=== PATIENT | female | born 1985 | race Hispanic/Latino ===

== ENCOUNTER 2019-12-02 13:09 | Inpatient (IN) | payer OTHER, SELFPAY ==
[2019-12-02] VITALS (9 sets, daily range): BP systolic 113–133; BP diastolic 65–76; PULSE 85–97; TEMP 36.7–37.9; BMI 36.0
[2019-12-02 13:55] LABS: Basophils Absolute Auto 0.1 K/mm3 (0.0-0.1); Basophils Percent Auto 0.5 % (0.2-1.2); Eosinophils Percent Auto 0.2 % (0-4.4); Hematocrit 37.9 % (37.0-47.0); Hemoglobin 13.1 g/dL (12.0-15.0); Immature Granulocyte Absolute 0.16 K/mm3 (0.00-0.031); Immature Granulocyte Percent A 1.3 % (0-0.5); Lymphocytes Percent Auto 11.9 % (18.3-44.2); Mean Corpuscular HGB Conc 34.6 g/dl (32-36); Mean Corpuscular Volume 95.5 fl (80-100); Mean Platelet Volume 9.4 fl (7.4-10.4); Monocytes Absolute Auto 1.1 K/mm3 (0.1-0.6); Monocytes Percent Auto 8.8 % (2.6-8.5); Neutrophils Absolute Auto 9.8 K/mm3 (1.3-6.7); Neutrophils Percent Auto 77.3 % (45.5-73.1); Platelet Count Result 263 k/mm3 (150-375); Red Blood Count 3.97 M/mm3 (4.2-5.4); White Blood Count 12.6 K/mm3 (4.5-10.0)
--- NOTE | 2019-12-02 13:58 | LDADM ---
This patient, Pily Staley, was admitted to Labor/Delivery/Recovery 109 on 12/02/19 at 13:27. Plans for labor, pain management and were discussed with patient. Patient/family oriented to hospital policies and general routines including ID bracelet, bed and alarms, visiting hours, pain management, procedures, bathroom and other care routines, personal items, smoking policy, room service/diet and guest tray routines, infant security routines, and visiting hours. Patient/Family are encouraged to report perceived risks to care and to ask questions if they do not understand what they are told or what they should do. See OBIX for further documentation.
[2019-12-02] MEDS: DINOPROSTONE 10 MG VAG INSERT VAGINAL (14:15)
[2019-12-02] MEDS: AMPICILLIN 2 GM/NS 100 ML 2 GM/100 ML BAG IVPB (14:29)
[2019-12-02] MEDS: LACTATED RINGERS 1,000 ML 125 ML IV CONT (14:29)
[2019-12-02] MEDS: AMPICILLIN 1 GM/NS 50 ML 1 GM/50 ML BAG IVPB ×2 (18:12→22:30)
[2019-12-03] VITALS (198 sets, daily range): BP systolic 73–143; BP diastolic 31–89; PULSE 80–137; RESP 18; TEMP 36.8–37.4; O2SAT 84–100
[2019-12-03] MEDS: OXYTOCIN 30 UNITS/NS 500 ML 30 UNITS/500 ML BAG 6 UNITS IV CONT (02:29)
[2019-12-03] MEDS: AMPICILLIN 1 GM/NS 50 ML 1 GM/50 ML BAG IVPB ×4 (02:30→14:38)
[2019-12-03] MEDS: LACTATED RINGERS 1,000 ML 125 ML IV CONT ×4 (06:18→15:51)
--- NOTE | 2019-12-03 07:38 | WPDOBADMIT ---
Obstetrics - Admit Note Admission Note: record reviewed. No pertinent additions to the history and/or any subsequent changes in the physical findings that are not consistent with the expected course of the were found. Additions to the history and/or subsequent changes in the physical findings follow. at 40+3 admitted 12/01 for cervidil induction. She had SROM this morning with thin meconium and is 4 cm dilated. +GBS so continue antibiotics and continue pitocin..
--- NOTE | 2019-12-03 07:40 | WPDOBADMIT ---
Obstetrics - Admit Note Admission Note: record reviewed. No pertinent additions to the history and/or any subsequent changes in the physical findings that are not consistent with the expected course of the were found. MIL AROM, clear odorless fluid 1/-2 Additions to the history and/or subsequent changes in the physical findings follow. None.
[2019-12-03 16:06] LABS: Rapid Plasma Reagin Non-Reactive (NonReactive)
--- NOTE | 2019-12-03 17:31 | PM.OBPRVD ---
OB - Delivery Note Procedure Delivery date: 12/03/19 Procedure: Intrapartal events: None Induction method: AROM, per misoprostol protocol and per pitocin protocol Delivery monitor: external FHT and external uterine Episiotomy description: None Laceration description: Perineal - 2nd Degree Delivery repair: vicryl Specimen: No Anesthesia type: Epidural Disposition: floor Baby Date of : 12/03/19 Time of : 17:16 Weeks of gestation at delivery: 40 gender: Male Weight (pounds): 7 Weight (ounces): 1 presentation: vertex Placenta delivery description: Spontaneous cord vessel description: 3 Vessels score one minute: 8 score five minutes: 9
[2019-12-03] MEDS: OXYTOCIN 30 UNITS/NS 500 ML 30 UNITS/500 ML BAG 125 UNITS IV CONT (18:00)
[2019-12-03] MEDS: IBUPROFEN 600 MG TABLET PO (19:30)
[2019-12-03] MEDS: WITCH HAZEL 40 PADS 1 PAD TOPICAL (19:57)
--- NOTE | 2019-12-03 20:12 | OBPPTRN ---
Patient transferred to post room #285 via wheelchair and infant transported via crib. Support person present. Oriented to unit, room, information board, rooming in, admission packet and security measures. Patient verbalizes understanding.
--- NOTE | 2019-12-03 20:12 | OBPPTRN ---
Patient transferred to post room # via ( ). Support person present. Oriented to unit, room, information board, rooming in, admission packet and security measures. Patient verbalizes understanding.
[2019-12-04 05:28] LABS: Hematocrit 32.8 % (37.0-47.0); Hemoglobin 11.2 g/dL (12.0-15.0)
--- NOTE | 2019-12-04 07:43 | PM.OBPNVD ---
OB - PN: Subj Subjective Date/time seen: 12/04/19 07:43 Patient comments: no complaints baby status: doing well OB - PN: Obj Data Labs CBC & Chem 7: 12/04/19 04:32 Labs: Laboratory Results - last 24 hr 12/02/19 12/04/19 13:45 04:32 Hgb 11.2 L Hct 32.8 L RPR Non-reactive OB - PN A/P Plan day: 1 Plan: routine care Time Spent With Patient Time: Total time spent is greater than 50% in coordination of care (as documented) at patient's floor/unit and/or counseling patient: Review of Systems Review of Systems: All systems reviewed & are unremarkable except as noted in HPI and below Constitutional: Constitutional: Reports as per HPI Cardiovascular: Cardiovascular: Reports as per HPI Exam Const: General: comfortable Resp: Effort & Inspection: normal respiratory effort : Manual OB Exam: Deferred manual OB exam Psych: Appearance: grossly normal Mental Status: mental status grossly normal Affect: normal affect
--- NOTE | 2019-12-04 07:54 | WPDANLDPN2 ---
Anes-Prog Note L&D Date/Time: 12/04/19 07:54 Comfortable throughout: labor and delivery Neuraxial method: epidural Epidural/Spinal procedure site: clean & non-tender Neuro status: Neuro function grossly intact. Cardiovascular status: normal Respiratory status: normal Airway patency: baseline Mental status: baseline Post-Op hydration status: normal Vital Signs: Last Vital Signs Temp 37.2 C 12/03/19 20:15 Pulse 93 12/03/19 20:15 Resp 18 12/03/19 20:15 BP 122/72 12/03/19 20:15 Pulse Ox 98 12/03/19 20:15 I/O: Intake & Output 12/03/19 12/03/19 12/04/19 15:59 23:59 07:59 Intake Total 2100 500 Output Total 350 Balance 2100 150 Post-procedural complaints: none Patient feedback: Patient satisfied with anesthetic care.
[2019-12-04 08:00] VITALS: BP 125/72; PULSE 98; RESP 18; TEMP 36.3
[2019-12-04] MEDS: MULTIVIT/MIN/PREN/FOL AC/IRON TABLET 1 TAB PO (08:32)
[2019-12-04] MEDS: BENZOCAINE 20% AER SPR (*SP) 56 GM CAN 1 SPRAY (08:32)
[2019-12-04] MEDS: WITCH HAZEL 40 PADS 1 PAD TOPICAL (08:32)
[2019-12-04] MEDS: IBUPROFEN 600 MG TABLET PO ×2 (08:33→16:44)
[2019-12-04] MEDS: DOCUSATE SODIUM 100 MG CAPSULE PO ×2 (08:33→16:44)
--- NOTE | 2019-12-04 16:10 | PC.NURSE ---
Breast pump provided due to ineffective feeding and nipple shield use. . Instructions given on breast pump care and usage, pumping schedule, nipple care, and collection and storage of breast milk. Encouraged [id number], breast massage and manual expression to stimulate supply. Assessed patient for correct flange size, placement and draw. Patient verbalizes and demonstrates understanding of instructions.
[2019-12-04 19:49] VITALS: BP 128/71; PULSE 84; RESP 16; TEMP 36.6
[2019-12-04] MEDS: TETANUS,DIPHTHERIA,AC PERTUSSIS ADULT 0.5 ML (ADACEL) IM (19:52)
[2019-12-05] MEDS: IBUPROFEN 600 MG TABLET PO ×2 (05:27→11:43)
--- NOTE | 2019-12-05 07:55 | PM.OBPNVD ---
OB - PN: Subj Subjective Date/time seen: 12/05/19 07:55 Patient comments: no complaints baby status: doing well [place] feeding status: exclusively breast feeding OB - PN: Obj Data Labs CBC & Chem 7: 12/04/19 04:32 OB - PN A/P Plan day: 2 Plan: routine care, discharge home and other (Follow up in 4 weeks) Time Spent With Patient Time: Total time spent is greater than 50% in coordination of care (as documented) at patient's floor/unit and/or counseling patient: Time with patient: less than 15 minutes Review of Systems Review of Systems: All systems reviewed & are unremarkable except as noted in HPI and below Exam Narrative: Exam Narrative: Fundus firm and vaginal flow controlled Const: General: comfortable Resp: Effort & Inspection: normal respiratory effort Psych: Appearance: grossly normal Affect: normal affect Attitude: cooperative Judgement: Good judgement present (Psych)
[2019-12-05 08:00] VITALS: BP 121/75; PULSE 88; RESP 18; TEMP 36.2
[2019-12-05] MEDS: BENZOCAINE 20% AER SPR (*SP) 56 GM CAN 1 SPRAY TOPICAL (08:24)
[2019-12-05] MEDS: WITCH HAZEL 40 PADS 1 PAD TOPICAL (08:24)
[2019-12-05] MEDS: DIBUCAINE 1% OINTMENT 30 GM TUBE 1 APPLIC TOPICAL (08:25)
[2019-12-05] MEDS: MULTIVIT/MIN/PREN/FOL AC/IRON TABLET 1 TAB PO (08:25)
[2019-12-05] MEDS: LANOLIN (LANSINOH) 7.5 GM CREAM 1 APPLIC TOPICAL (08:25)
[2019-12-05] MEDS: DOCUSATE SODIUM 100 MG CAPSULE PO (08:25)
[2019-12-06 10:32] VITALS: BP 116/79; PULSE 95; RESP 18; TEMP 36.8
--- NOTE | 2019-12-28 21:01 | PM.OBDSVD ---
DS: Diagnosis Admitting Diagnosis Admitting Diagnosis: Encounter for supervision of normal , unspecified, third trimester Discharge Diagnosis (1) Term delivered: Code(s): O80 - Encounter for full-term uncomplicated delivery Status: Acute OB - DS: Summary OB Procedures : None OB Procedures Intrapartum: Spontaneous Vag Delivery OB Procedures: : None Peripartum Data Delivery Method: Natural Vaginal complications: none Status at Discharge Functional status at discharge: independent ambulation Time Spent with Patient Time attestation: Total time spent providing and/or coordinating discharge services: Discharge Plan Discharge Attending physician on discharge: Dameon Garcia Consulting providers: Theresa Plascencia ; Chelle Rocha Discharging Clinician: Chelle Rocha Patient Disposition: Home, Self-Care Activity: pelvic rest Diet: as tolerated Discharge Instructions: Education: Mom and Baby Guide Given to: Mother Follow-Up: Call your delivering provider's office for an appointment to be seen in: 6 Weeks Mom and baby should come to the [facility] for the follow-up appointment. Appointment Date/Time: December 06, 2019 at 10:00 am What to expect at your follow-up visit: Blood Pressure Check Physical Assessment Call [phone] if you are unable to keep your appointment time. BREAST CARE: 1. Wear a snug supportive bra. 2. For engorgement discomfort: Breast Feeding: A. Apply warm moist washcloths B. Express milk as needed to relieve engorgement C. Wear loose clothing Bottle Feeding: A. May apply ice packs 3. For sore nipples: A. Identify correct latch-on B. Apply warm moist washcloths before and after nursing C. Air dry nipples after nursing D. May apply Lansinoh cream to nipples EPISIOTOMY/PERINEAL CARE: 1. Until bleeding stops, use your jenna bottle after urinating 2. Change your pad frequently throughout the day 3. You may take sitz baths several times a day (fill your bathtub with warm water and soak for 20 minutes.) Do NOT bathe in the water 4. No tub baths until seen by your physician - You may shower ACTIVITY: 1. Rest as much as possible. 2. Do not exercise or lift anything heavier than your baby (such as laundry or other children.) 3. Avoid stairs or driving as much as possible. 4. Do not put anything into the vagina. No douching, tampons, or sexual activity until seen by physician. NOTIFY PHYSICIAN IF YOU HAVE ANY QUESTIONS OR IF ANY OF THE FOLLOWING SYMPTOMS OCCUR: 1. If your episiotomy becomes red, swollen, or more painful than what you have experienced in the hospital. 2. If your vaginal bleeding becomes foul smelling. 3. If your vaginal bleeding becomes more heavy than a period or if your bleeding changes from pink to bright red. However, you may pass an occasional walnut-sized clot once or twice for the first week . 4. If you experience a sharp, shooting pain in you calves. 5. If you discover a hard, reddened area on your breast or if you experience flu-like symptoms. DIET: 1. Eat regular, well-balanced meals. 2. Drink plenty of fluids daily. If , drink to thirst. Patient Instructions: Antibiotic Form Stand Alone Forms: General Discharge Information Follow-up/Referrals: Dameon Garcia MD [Physician] - 6 Weeks Discharge Medications: Continued PNV [id number] fumarate-FA [] 28 mg iron- 800 mcg Tablet 1 tablet PO DAILY RF: 0 Date of admission: 12/02/19 13:09 Primary Care Provider: SulyJulius Admitting Provider: Dameon Garcia Discharge Date/Time: 12/05/19 12:15 Attending physician on admission: Dameon Garcia
== END 2019-12-05 12:15 | disposition home or self-care (01) | DRG 560 ==
LOC: ANHLDR 12-03 10:37 → ANHOB2 12-03 20:15
PROVIDERS: Admitting Provider Obstetrics & Gynecology; PCP Registered Nurse; Visit Provider Obstetrics & Gynecology
DX: O99.824 Streptococcus B carrier state complicating childbirth (principal); Z37.0 Single live birth; Z3A.40 40 weeks gestation of pregnancy; Z23 Encounter for immunization; O70.1 Second degree perineal laceration during delivery; O69.81X0 Labor and delivery complicated by cord around neck, without compression, not applicable or unspecified
CPT/HCPCS: 36415; 85014; 85018; 85025; 86592; 86850; 86900; 86901; 90471; 90686; 90715; A9270; G0008; J0290; J2590; J2795; J3010; J7120

== ENCOUNTER 2020-05-11 01:30 | Outpatient (CLI) | payer OTHER, SELFPAY ==
[2020-05-11 16:17] LABS: SARS-CoV-2 RNA PCR Negative
== END 2020-05-11 01:31 | disposition home or self-care (01) ==
LOC: ANHCOVIDDT 01:30
PROVIDERS: PCP Registered Nurse; Visit Provider Obstetrics & Gynecology
DX: Z01.812 Encounter for preprocedural laboratory examination (principal); Z20.828 Contact with and (suspected) exposure to other viral communicable diseases
CPT/HCPCS: 87635; C9803; U0003

== ENCOUNTER 2020-05-13 00:35 | Day surgery (SDC) | payer OTHER, SELFPAY ==
[2020-05-06 09:13] VITALS: BMI 30.1
[2020-05-13] MEDS: LACTATED RINGERS 1,000 ML 30 ML IV CONT (09:51)
[2020-05-13 09:53] VITALS: BP 123/64; PULSE 78; TEMP 36.6; O2SAT 99
--- NOTE | 2020-05-13 10:06 | WPDANESEPPF ---
Anes - Initial Pre Proc Eval Procedure: Operation Date: 05/13/20 11:30 Proposed Procedures p Excision Of Vulvar Lesion - Dameon Garcia MD Date/Time: 05/13/20 10:06 Surgeon: Dameon Garcia MD Pre Op Diagnosis: Vulvar/Vaginal Lesion Patient Data Age: 35 Gender: F Height: 5 ft 3 in Weight: 74.4 kg Last Vital Signs Temp 97.8 F 05/13/20 09:53 Pulse 78 05/13/20 09:53 BP 123/64 05/13/20 09:53 Pulse Ox 99 05/13/20 09:53 Allergies Allergy/AdvReac Type Severity Reaction Status Date / Time No Known Allergies Allergy Verified 05/06/20 09:13 Home Medications Medication Instructions Recorded Confirmed Type No Home Medications 05/06/20 05/06/20 History Patient hx anesthesia problems: none Family hx anesthesia problems: none PMFSH Past Medical History Medical History (Updated 05/13/20 @ 10:06 by Ash Servin MD) Healthy adult Family History Family History (Updated 11/11/19 @ 12:53 by Kiah Hook RN) Mother Hypertension Kidney infection Father Hypertension Social History Social History Smoking status: Never smoker Second hand tobacco smoke exposure: No Alcohol intake: current Drinks per week: 1 Substance use: never Spiritual care concerns: No Anes - Eval Final PreProcedure Day of Procedure 05/13/20 10:06 Patient weight: normal Heart: regular rate and rhythm Lungs: clear to auscultation Airway: Mallampati scale class II Neurological: alert and oriented Last oral intake: >/= 8 hours ASA classification: I Emergent: no Anesthetic plan: proceed Anesthesia type and monitoring: general GIVS and standard monitoring Informed Consent: The patient's anesthetic plan and its attendant risks and benefits were discussed with the patient/family/POA. Questions were solicited and answers provided to the satisfaction of the patient/family/POA.
--- NOTE | 2020-05-13 11:16 | PM.IMHP ---
H&P: HPI History of Present Illness Date/Time: 05/13/20 11:16 Chief complaint: Vulvar/Vaginal Lesion Narrative: Pily Cummins is a 35 year old female Who presents for surgical care. She has a poorly healed episiotomy or obstetrical wound. Granulation tissue is filled the space there and has been bleeding and is refractory to treatment. We have agreed to perform resection of vulvar lesion. She understands the risks. She understands that injuries may occur that result and more surgery, severe illness, hospitalization . The patient understands the risk of hemorrhage and infection. Review of Systems Constitutional: Constitutional: Reports no additional constitutional complaints, Denies fatigue, Denies headache(s), Denies lethargy and Denies weakness Eyes: Eyes: Reports no additional eye complaints, Denies blurry vision and Denies photophobia ENT: Reports as per HPI, Denies headache(s) and Denies neck pain Cardiovascular: Cardiovascular: Denies chest pain, Denies diaphoresis, Denies leg edema, Denies palpitations and Denies dyspnea Respiratory: Respiratory: Denies hemoptysis, Denies dyspnea and Denies wheezing Gastrointestinal: Gastrointestinal: Denies abdominal pain, Denies melena, Denies bloating, Denies hematochezia, Denies nausea and Denies vomiting Genitourinary: Genitourinary: Reports no additional female genitourinary complaints Musculoskeletal: Musculoskeletal: Denies joint swelling, Denies neck pain, Denies numbness and Denies stiffness Neurologic: Denies Abnormal speech present, Denies confusion, Denies headache(s), Denies numbness and Denies weakness Psychiatric: Psychiatric: Denies anxiety, Denies confusion, Denies depression, Denies homicidal ideation and Denies suicidal ideation Endocrine: Endocrine: Denies fatigue and Denies palpitations Allergic/Immunologic: Allergic/Immunologic: Denies wheezing PMFSH Past Medical History Medical History (Updated 05/13/20 @ 11:18 by Dameon Garcia MD) Healthy adult Family History Family History (Updated 11/11/19 @ 12:53 by Kiah Hook RN) Mother Hypertension Kidney infection Father Hypertension Social History Social History Smoking status: Never smoker Second hand tobacco smoke exposure: No Alcohol intake: current Drinks per week: 1 Substance use: never Spiritual care concerns: No Meds Home Medications and Allergies Home Medications Medication Instructions Recorded Confirmed Type No Home Medications 05/06/20 05/06/20 History Allergies Allergy/AdvReac Type Severity Reaction Status Date / Time No Known Allergies Allergy Verified 05/06/20 09:13 Vital Signs Vital Signs - 24 hr 05/13/20 09:53 Temperature 97.8 F Pulse Rate 78 Blood Pressure 123/64 Pulse Oximetry 99 Exam Const: General: healthy appearing, comfortable and no acute distress; No confusion Orientation/consciousness: No confusion Eyes: Direct Ophthalmoscopy: No photophobia Resp: Auscultation: clear to auscultation bilaterally, no rales, no rhonchi and no wheezes Cardio: Rate: regular rate Heart sounds: no click, no murmurs and no rubs GI: Inspection: non-distended GI Palp: No abdominal tenderness Auscultation: normal bowel sounds Neuro: General: No confusion Speech: No Abnormal speech present Extrem: General: normal to inspection, no pedal edema and no calf tenderness Assessment and Plan Assessment and plan (1) Vulvar lesion: Code(s): N90.89 - Other specified noninflammatory disorders of vulva and perineum Status: Acute Assessment and Plan: this patient is a 35-year-old female presents for excision vulvar lesion. She understands the risks, benefits, and alternatives. She has completed the informed consent process and is ready to proceed.
[2020-05-13] MEDS: LIDO 1%/EPINEPHRINE 1:100,000 20 ML VIAL 5 ML INFILTRATE (11:33)
[2020-05-13 12:10] VITALS: BP 100/58; PULSE 86; RESP 18; O2SAT 99
--- NOTE | 2020-05-13 12:35 | P.OP_ITS ---
Procedure Note - Detailed Date of procedure: 05/13/20 Pre-op diagnosis: Vulvar/Vaginal Lesion Post-op diagnosis: same Procedure performed: Destruction of vaginal lesion Description of procedure: The patient was taken the operating room. She p referred draped in the dorsal lithotomy position. There was a area of granulation tissue. It was small. It is about 5 x 5 mm at the posterior vaginal introitus. Near the posterior fourchette. It was cauterized with Bovie cautery. Initially a piece of the granulation tissue was resected for pathology evaluation. Luciana scissors. Then the base of the granulation tissue lesion was cauterized thoroughly with coagulation cautery. The procedure was terminated. The wound was covered with estrogen cream. Anesthesia: MAC Surgeon: Dameon Garcia MD Estimated blood loss (mL): 5 Drains: No Packing: No Pathology: yes Complications: No immediate complications Condition: stable Disposition: same day Findings: 5 x 5 mm area of granulation tissue at the posterior fourchette. This is the area of her episiotomy is scar.
[2020-05-13 12:40] VITALS: BP 113/63; PULSE 58; RESP 16; O2SAT 99
[2020-05-13 13:05] VITALS: BP 113/63; PULSE 56; RESP 16
== END 2020-05-13 13:20 | disposition home or self-care (01) ==
PROVIDERS: PCP Registered Nurse; Visit Provider Obstetrics & Gynecology
PROC: (CPT 11420; principal; 2020-05-13 11:30)
DX: N90.89 Other specified noninflammatory disorders of vulva and perineum (principal)
CPT/HCPCS: 11420; 88305; A9270; J2250; J2704; J3010; J7120

== ENCOUNTER 2024-11-17 20:14 | Emergency (ER) | payer SELFPAY ==
--- NOTE | ~2024-11-17 | US_ITS ---
Pelvic ultrasound. Clinical History: First trimester , abdominal cramping and vaginal bleeding Technique: Realtime transabdominal and transvaginal scanning of the pelvis was performed. Color flow Doppler and Doppler spectral analysis were performed. Findings: The uterus is anteverted. The endometrial stripe has a thickness of 10 mm. No intrauterine gestational sac is identified. The right ovary measures 2.8 x 2.6 x 2.8 cm. No significant right ovarian or adnexal mass is seen. The left ovary measures 1.9 x 2.2 x 1.3 cm. No significant left ovarian or adnexal mass is seen. There is small amount of free fluid in the cul de sac. Impression: Positive test without intrauterine gestation. Differential diagnosis includes early normal , spontaneous , or nonvisualized ectopic . Correlate clinically. Continued follow-up with serial beta hCG, and repeat ultrasound as warranted, is advised. Reviewed, dictated and finalized at [facility]. Impression: Positive test without intrauterine gestation. Differential diagnosis includes early normal , spontaneous , or nonvisualized ectopic . Correlate clinically. Continued follow-up with serial beta hCG, and repeat ultrasound as warranted, is advised.
[2024-11-17 20:16] VITALS: BP 129/97; PULSE 81; RESP 16; TEMP 36.5; O2SAT 100
--- OUTSIDE RECORDS SUMMARY | 2024-11-17 20:17 | XMS_ITS | Continuity of Care Document ---
Author Organization [facility] Address [address] [place] [address] Phone Care Team Providers Care Aquatic Performer Name Role Phone Nurse, Registered Unavailable Unavailable Procedures Procedure Date ADMIN SARSCOV2 VACC 1 DOSE SARSCOV2 VAC 30MCG TRSSUC IM Advance Directives Directive Yes / No Effective Date File Name No Information Encounters Encounter Description Practice Location Reason(s) For Visit Diagnoses Date Provider Providers Copied on Encounter [facility] , [address], [place], [place], [id number], [place] tel:[phone] COVID Mobile immunization (chief complaint) No Information Nurse Registervaishali flannery [address], [place], [place], [address] , [place]. tel:[phone] Family History Family Member Type Diagnosis Age At Onset No Information Immunizations Vaccine Date Status Comments 12+ Pfizer administered Note: Pt tolera terry well ; Source: New Immunization Record Payers Payer name Insurance type Covered republican ID Authoriza tion(s) No Information Social History Type Description Quantity Date Captured Comments Alcohol Use Details Unknown Caffeine Use Details Unknown Tobacco Use Status No Information Smoking Status No Information Sex Female Chief Complaint And Reason For Visit From encounter dated '07/21/2023 17:52'. immunization (chief complaint). Description: 1 12+ Pfizer [id number] Administered New 07/21/2023 07/21/2023 05:54 PM Norise [employer], Iris 0.3 [id number] 10/11/2023 [employer] Intramuscular Left Deltoid Pt tolerated well Yuki Anthony Narnell (07/21/2023) Reason For Referral Reason For Referral No Information History Of Present Illness Encounter Date Complaint History Of Prese nt Illness immunization 1 12+ Pfizer [id number] Administered New 07/21/2023 07/21/2023 05:54 PM Norise [employer], Iris 0.3 [id number] 10/11/2023 [employer] Intramuscular Left Deltoid Pt tolerated well Yuki Anthony Narnell (07/21/2023) Functional Status Date Functional Assessmen t No Information Instructions Date Instruction Additional Infor mation No Information Assessments Type Assessment Date No Information Patient Care Teams Name Effective Dates (start - stop) Status Members No Information
--- OUTSIDE RECORDS SUMMARY | 2024-11-17 20:17 | XMS_ITS | Data Portability ---
Author Organization Marta JACKSON Address [address] [place] [address] Care Team Providers Care Senior Oracle Soa Developer Name Role Phone JULIUS LANE Primary Care Provider [phone] LAKHWINDER ACOSTA Mold Inspector Assessment No assessment recorded. 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 Not available Not available Lab TSH, ultra- sensit sebastian, serum 2023 024 [facility], [address] [place] [address], [address], [place], [address], 05/10/2024 08:25:23 vitami n D, 25-hyd sabiha, total, serum 2023 024 [facility], [address] [place], [place] [address]radha [address], [address], [place], [address], 05/10/2024 08:25:23 urinal ysis, dipsti ck 2023 024 [email or web address] In-Office Order, Internal Use Only DO Not Attach Compendium DO Not Attach Compendium, Do Not Delete/merge, [id number] 02/06/2024 17:43:01 cultur e, urine 2023 024 [facility], [address] [place], [place] [address]radha [address], [address], [place], [address], 02/08/2024 02:08:45 respir atory allerg en panel - [place] c 2023 024 [facility], [address], [address], [place], [address], 12/30/2023 23:06:55 HbA1c (hemog lobin A1c), blood 2023 024 [email or web address] In-Office Order, Internal Use Only DO Not Attach Compendium DO Not Attach Compendium, Do Not Delete/merge, [id number] 12/25/2023 15:23:38 glucos e, finger stick, blood 2023 024 [email or web address] In-Office Order, Internal Use Only DO Not Attach Compendium DO Not Attach Compendium, Do Not Delete/merge, [id number] 12/25/2023 15:23:39 CBC w/ auto diff 2023 024 [facility], [address], [address], [place], [address], 12/25/2023 22:07:06 vitami n B12 + folate , serum or blood 2023 024 [facility], [address], [address], [place], [address], 12/30/2023 23:06:56 vitami n D, 25-hyd sabiha, total, serum 2023 024 [facility], [address], [address], [place], [address], 12/30/2023 23:06:56 TSH + free T4, serum 2023 024 [facility], [address], [address], [place], [address], 12/30/2023 23:06:55 CMP, serum or plasma 2023 024 [facility], [address] [place] [address], [address], [place], [address], 12/25/2023 22:07:03 urinal ysis, comple te 2023 024 [facility], [address] [place] [address], [address], [place], [address], 12/25/2023 22:07:05 strept ococcu s group A, cultur e, throat 2023 024 [facility], [address] [place] [address], [address], [place], [address], 12/28/2023 05:08:18 urinal ysis, dipsti ck 2022 023 [email or web address] In-Office Order, Internal Use Only DO Not Attach Compendium DO Not Attach Compendium, Do Not Delete/merge, [id number] 11/14/2022 12:39:23 cultur e, urine 2022 023 [facility], [address] [place] [address], [address], [place], [address], 11/18/2022 17:09:26 Referral None record ed. Procedures None record ed. Surgeries None record ed. Imaging None record ed. Medication Orders Unithr oid 25 mcg tablet 2023 024 petr [facility], [address] [place], [address], 11/08/2024 16:41:58 Unithr oid 25 mcg tablet 2023 024 [facility], [address] [place], [address], 05/09/2024 16:25:33 Bactri m DS 800 mg-160 mg tablet 2023 024 [facility], [address] [place] [address], [address], 05/09/2024 15:40:26 Unithr oid 25 mcg tablet 2023 024 [facility], [address] [place] [address], [address], 02/06/2024 17:43:08 cetiri zine 10 mg tablet 2023 024 [facility], [address] [place] [address], [address], 02/06/2024 17:43:07 amoxic illin 875 mg tablet [address] [facility], [address] [place] [address], [address], 02/06/2024 16:58:26 cetiri zine 10 mg tablet [address] [facility], [address] [place] [address], [address], 02/06/2024 17:06:31 Medrol 4 mg tablet 2023 024 [facility], [address] [place] [address], [address], 02/06/2024 16:59:17 Macrob id 100 mg capsul e 2022 023 [facility], [address] [place] [address], [address], 02/06/2024 16:58:33 Pyridi um 200 mg tablet 2022 023 [facility], [address] [place] [address], [address], 12/25/2023 14:47:57 Patient TargetsNo targets recorded. Patient Instructions Encounter Date Encounter Id Patient Instructions Last Modified By Organization Details Last Modified Time 11/14/2022 [id number] aprenda acerca d el peso saludable - [learning about healthy weight] yarauz Not available 11/14/2022 12:39:22 increase water intake general hygiene measures take all your medicines as directed if symptoms do not improve or resolve make a follow up appointment yarauz Not available 11/14/2022 12:39:21 12/25/2023 [id number] Aprenda sobre el nivel bajo de az car en la beatriz (hipoglucemia) en la diabetes - [Learning About Low Blood Sugar (Hypoglycemia) in Diabetes] yarauz Not available 12/25/2023 15:31:34 hipoglucemia: instrucciones de cuidado - [hypoglycemia: care instructions] yarauz Not available 12/25/2023 15:31:34 dolor de gargant a: instrucciones de cuidado - [sore throat: care instructions] yarauz Not available 12/25/2023 15:31:34 aprenda acerca d el peso saludable - [learning about healthy weight] yarauz Not available 12/25/2023 15:23:36 A healthy lifestyle: care instructions yarauz Not available 12/25/2023 15:23:36 see dentist ever y 6 months see eye doctor every 2 years or as necessary Influenza vaccine yearly condoms seat belt use sun screen insect repellent heart healthy diet 1 hour of physical activity no more than 2 hours of electronics yarauz Not available 12/25/2023 15:23:21 02/06/2024 [id number] Infecci n urinaria en las mujeres: Instrucciones de cuidado - [Urinary Tract Infection (UTI) in Women: Care Instructions] yarauz Not available 02/06/2024 17:42:59 hipotiroidismo: instrucciones de cuidado - [hypothyroidism: care instructions] yarauz Not available 02/06/2024 17:42:59 test results estephania l check tsh on f/u and vitamin d general hygiene measures yarauz Not available 02/06/2024 17:42:23 05/09/2024 [id number] A healthy lifestyle: care instructions yarauz Not available 05/09/2024 16:21:48 aprenda acerca d el peso saludable - [learning about healthy weight] yarauz Not available 05/09/2024 16:21:48 continue vitamin D continue thyroid med if test results abnormal will call yarauz Not available 05/09/2024 16:24:30 08/12/2024 [id number] A healthy lifestyle: care instructions yarauz Not available 08/12/2024 15:56:08 aprenda acerca d el peso saludable - [learning about healthy weight] yarauz Not available 08/12/2024 15:56:08 You have hypothyroidism, which means that your body is not making enough thyroid hormone. This hormone helps your body use energy. If your thyroid level is low, you may feel tired, be constipated, have an increase in your blood pressure, or have dry skin or memory problems. You may also get cold easily, even when it is warm. Women with low thyroid levels may have heavy menstrual periods. A blood test to find your thyroid-stimulatin g hormone (TSH) level is used to check for hypothyroidism. A high TSH level may mean that you have low thyroid. When your body is not making enough thyroid hormone, TSH levels rise in an effort to make the body produce more. The treatment for hypothyroidism is to take thyroid hormone pills. You should start to feel better in 1 to 2 weeks. But it can take several months to see changes in the TSH level. You will need regular visits with your doctor to make sure you have the right dose of medicine. Most people need treatment for the rest of their lives. You will need to see your doctor regularly to have blood tests and to make sure you are doing well. Follow-up care is a olivas part of your treatment and safety. Be sure to make and go to all appointments, and call your doctor if you are having problems. It's also a good idea to know your test results and keep a list of the medicines you take. [email or web address] Not available 08/12/2024 15:51:36 Reason for Referral None Reported. Results Created Date Observation Date Name Description Value Unit Range Abnormal Flag Note LastModifiedBy Organization Detail LastModifiedTime 11/15/1911/18/2022 URINE CULTU RE, ROUTI NE urine culture, routine Final report abnormal Not Available [facility] ([facility]) [address] [facility] [place], [place], [address], 11/18/2022 17:09:26 11/15/19 23 11/18/2022 URINE CULTU RE, ROUTI NE result 1 Commen t abnormal Esche flavio a coli, ident ified by an autom ated bioch emica l syste m. Cefaz [place] <=4 ug/mL Cefaz [place] with an LOUIE <=16 predi cts susce ptibi lity to the oral agent s cefac jackelin, cefdi dolores, cefpo doxim e, cefpr ozil, cefur oxime , cepha lexin , and lorac arbef when used for thera py of uncom plica terry urina ry tract infec tions due to E. coli, Klebs iella pneum oniae , and Prote us mirab ilis. Multi -Drug Resis tant Organ ism Great er than 100,0 00 colon y formi ng units per mL Not Available [facility] ([facility]) [address] [place], [place], [address], 11/18/2022 17:09:26 11/15/19 23 11/18/2022 URINE CULTU RE, ROUTI NE antimicrobia l susceptibili ty Commen t S = Susce ptibl e; I = Inter media te; R = Resis tant P = Posit sebastian; N = Negat sebastian MICS are expre ssed in micro grams per mL Antib iotic RSLT# 1 RSLT# 2 RSLT# 3 RSLT# 4 Amoxi cilli n/Cla vulan ic Acid S Ampic illin R Cefep manuelito S Ceftr iaxon e S Cefur oxime S Cipro floxa farzad S Ertap enem S Genta micin R Imipe nem S Levof loxac in S Merop enem S Nitro furan toin S Piper acill in/Ta zobac fisher S Tetra cycli ne R Tobra mycin I Trime thopr im/Ceja lfa R Not Available [facility] ([facility]) [address] [facility], [place], [address], 11/18/2022 17:09:26 11/15/19 23 11/14/2022 urina lysis , dipst ick Leukocytes Large Not Available In-Offi ce Order Internal Use Only DO Not Attach Compendium DO Not Attach Compendium, Do Not Delete/merge, [id number] 11/14/2022 12:20:46 11/15/19 23 11/14/2022 urina lysis , dipst ick Nitrite negati ve Not Available In-Office Order Internal Use Only DO Not Attach Compendium DO Not Attach Compendium, Do Not Delete/merge, 11/14/2022 12:20:46 11/15/19 23 11/14/2022 urina lysis , dipst ick Urobilinogen .2 Not Available In-Of fice Order Internal Use Only DO Not Attach Compendium DO Not Attach Compendium, Do Not Delete/merge, 11/14/2022 12:20:46 11/15/19 23 11/14/2022 urina lysis , dipst ick Protein Negati ve Not Available In-Office Order Internal Use Only DO Not Attach Compendium DO Not Attach Compendium, Do Not Delete/merge, 11/14/2022 12:20:46 11/15/19 23 11/14/2022 urina lysis , dipst ick pH 7.0 Not Available In-Office Order Internal Use Only DO Not Attach Compendium DO Not Attach Compendium, Do Not Delete/merge, 11/14/2022 12:20:46 11/15/19 23 11/14/2022 urina lysis , dipst ick Blood Small Not Available In-Office Order Internal Use Only DO Not Attach Compendium DO Not Attach Compendium, Do Not Delete/merge, 11/14/2022 12:20:46 11/15/19 23 11/14/2022 urina lysis , dipst ick Specific [place] 1.015 Not Available In-Off ice Order Internal Use Only DO Not Attach Compendium DO Not Attach Compendium, Do Not Delete/merge, 11/14/2022 12:20:46 11/15/19 23 11/14/2022 urina lysis , dipst ick Ketone Negati ve Not Available In-Office Order Internal Use Only DO Not Attach Compendium DO Not Attach Compendium, Do Not Delete/merge, [id number] 11/14/2022 12:20:46 11/15/19 23 11/14/2022 urina lysis , dipst ick Bilirubin Negati ve Not Available In-Office Order Internal Use Only DO Not Attach Compendium DO Not Attach Compendium, Do Not Delete/merge, 11/14/2022 12:20:46 11/15/19 23 11/14/2022 urina lysis , dipst ick Glucose Negati ve Not Available In-Office Order Internal Use Only DO Not Attach Compendium DO Not Attach Compendium, Do Not Delete/merge, 11/14/2022 12:20:46 11/15/19 23 11/14/2022 urina lysis , dipst ick Appearance Clear Not Available In-Offi ce Order Internal Use Only DO Not Attach Compendium DO Not Attach Compendium, Do Not Delete/merge, 11/14/2022 12:20:46 11/15/19 23 11/14/2022 urina lysis , dipst ick Color Pale Yellow Not Available In-Office Order Internal Use Only DO Not Attach Compendium DO Not Attach Compendium, Do Not Delete/merge, 11/14/2022 12:20:46 12/25/19 24 12/25/2023 COMP. METAB OLIC PANEL (14) glucose 89 mg/dL 70-99 Not Available [facility] [address] [place], [address], 12/25/2023 22:07:03 12/25/19 24 12/25/2023 COMP. METAB OLIC PANEL (14) BUN 16 mg/dL 6-20 Not Available [facility] [address] [place], [address], 12/25/2023 22:07:03 12/25/19 24 12/25/2023 COMP. METAB OLIC PANEL (14) creatinine 0.73 mg/dL 0.76-1 .27 below low normal Not Available [facility] [address] [place], [address], 12/25/2023 22:07:03 12/25/19 24 12/25/2023 COMP. METAB OLIC PANEL (14) eGFR 109 >=60 Units for eGFR value s are mL/mi n/1.7 3 The eGFR Calcu latio n has not been valid ated for patie nts under the age of 18. If test resul ts are displ ayed for a patie nt under the age of 18, disre blaze that value . Not Available [facility] [address] [place] [address], [address], 12/25/2023 22:07:03 12/25/19 24 12/25/2023 COMP. METAB OLIC PANEL (14) BUN/creatini ne ratio 22 9-23 Not Available [facility] [address] [place] [address], [address], 12/25/2023 22:07:03 12/25/19 24 12/25/2023 COMP. METAB OLIC PANEL (14) sodium 137 mmol/ L 134-14 4 Not Available [facility] [address] [place] [address], [address], 12/25/2023 22:07:03 12/25/19 24 12/25/2023 COMP. METAB OLIC PANEL (14) potassium 4.1 mmol/ L 3.5-5. 2 Not Available [facility] [address] [place] [address], [address], 12/25/2023 22:07:03 12/25/19 24 12/25/2023 COMP. METAB OLIC PANEL (14) chloride 102 mmol/ L 96-106 Not Available [facility] [address] [place] [address], [address], 12/25/2023 22:07:03 12/25/19 24 12/25/2023 COMP. METAB OLIC PANEL (14) carbon dioxide, total 21 mmol/ L 20-29 Not Available [facility] [address] [place], [address], 12/25/2023 22:07:03 12/25/19 24 12/25/2023 COMP. METAB OLIC PANEL (14) calcium 9.1 mg/dL 8.7-10 .2 Not Available [facility] [address] [place], [address], 12/25/2023 22:07:03 12/25/19 24 12/25/2023 COMP. METAB OLIC PANEL (14) protein, total 7.6 g/dL 6.0-8. 5 Not Available [facility] [address] [place], [address], 12/25/2023 22:07:03 12/25/19 24 12/25/2023 COMP. METAB OLIC PANEL (14) albumin 4.3 g/dL 3.9-4. 9 Not Available [facility] [address] [place], [address], 12/25/2023 22:07:03 12/25/19 24 12/25/2023 COMP. METAB OLIC PANEL (14) globulin, total 3.3 g/dL 1.5-4. 5 Not Available [facility] [address] [place], [address], 12/25/2023 22:07:03 12/25/19 24 12/25/2023 COMP. METAB OLIC PANEL (14) A/G ratio 1.0 1.2-2. 2 below low normal Not Available [facility] [address] [place], [address], 12/25/2023 22:07:03 12/25/19 24 12/25/2023 COMP. METAB OLIC PANEL (14) bilirubin, total 0.3 mg/dL 0.0-1. 2 Not Available [facility] [address] [place], [address], 12/25/2023 22:07:03 12/25/19 24 12/25/2023 COMP. METAB OLIC PANEL (14) alkaline phosphatase 78 IU/L 44-121 Not Available [facility] [address] [place], [address], 12/25/2023 22:07:03 12/25/19 24 12/25/2023 COMP. METAB OLIC PANEL (14) AST (SGOT) 15 IU/L 0-40 Not Available [facility] [address] [place] [address], [address], 12/25/2023 22:07:03 12/25/19 24 12/25/2023 COMP. METAB OLIC PANEL (14) ALT (SGPT) 9 IU/L 0-32 Not Available [facility] [address] [place] [address], [address], 12/25/2023 22:07:03 12/25/19 24 12/25/2023 MICRO SCOPI C EXAMI NATIO N WBC 0-2 Not Available [facility] [address] [place] [address], [address], 12/25/2023 22:07:04 12/25/19 24 12/25/2023 MICRO SCOPI C EXAMI NATIO N RBC 10-15 abnormal Not Available [facility] [address] [place], [address], 12/25/2023 22:07:04 12/25/19 24 12/25/2023 MICRO SCOPI C EXAMI NATIO N epithelial cells (non renal) 1+ Not Available [facility] [address] [place], [address], 12/25/2023 22:07:04 12/25/19 24 12/25/2023 MICRO SCOPI C EXAMI NATIO N epithelial cells (renal) FEW Not Available [facility] [address] [place] [address], [address], 12/25/2023 22:07:04 12/25/19 24 12/25/2023 MICRO SCOPI C EXAMI NATIO N cast type COMMEN T Hyali ne Casts Urine FEW NOT ESTB. N Not Available [facility] [address] [place], [address], 12/25/2023 22:07:04 12/25/19 24 12/25/2023 MICRO SCOPI C EXAMI NATIO N crystal type COMMEN T Calci um Oxala te Cryst als Ur 4+ NOT ESTB. N Not Available [facility] [address] [place] [address], [address], 12/25/2023 22:07:04 12/25/19 24 12/25/2023 MICRO SCOPI C EXAMI NATIO N mucus threads 1+ Not Available [facility] [address] [place], [address], 12/25/2023 22:07:04 12/25/19 24 12/25/2023 MICRO SCOPI C EXAMI NATIO N bacteria 2+ abnormal Not Available [facility] [address] [place], [address], 12/25/2023 22:07:04 12/25/19 24 12/25/2023 MICRO SCOPI C EXAMI NATIO N comment COMMEN T [facility] ent Urine 1+ NOT ESTB. N Not Available [facility] [address] [place], [address], 12/25/2023 22:07:04 12/25/19 24 12/25/2023 URINA LYSIS , COMPL ETE specific gravity SEE BELOW: 1.005- 1.030 abnormal >=1.0 30 Not Available [facility] [address] [place] [address], [address], 12/25/2023 22:07:05 12/25/19 24 12/25/2023 URINA LYSIS , COMPL ETE pH 6.0 5.0-7. 0 Not Available [facility] [address] [place], [address], 12/25/2023 22:07:05 12/25/19 24 12/25/2023 URINA LYSIS , COMPL ETE urine-color SEE BELOW: yellow abnormal LT YELLO W Not Available [facility] [address] [place], [address], 12/25/2023 22:07:05 12/25/19 24 12/25/2023 URINA LYSIS , COMPL ETE appearance CLEAR clear Not Available [facility] [address] [place], [address], 12/25/2023 22:07:05 12/25/19 24 12/25/2023 URINA LYSIS , COMPL ETE WBC esterase COMMEN T NEGAT SEBASTIAN Not Available [facility] [address] [place], [address], 12/25/2023 22:07:05 12/25/19 24 12/25/2023 URINA LYSIS , COMPL ETE protein COMMEN T NEGAT SEBASTIAN Not Available [facility] [address] [facility], [place], [address], 12/25/2023 22:07:05 12/25/19 24 12/25/2023 URINA LYSIS , COMPL ETE glucose COMMEN T NEGAT SEBASTIAN Not Available [facility] [address] [place], [address], 12/25/2023 22:07:05 12/25/19 24 12/25/2023 URINA LYSIS , COMPL ETE ketones COMMEN T NEGAT SEBASTIAN Not Available [facility] [address] [place], [address], 12/25/2023 22:07:05 12/25/19 24 12/25/2023 URINA LYSIS , COMPL ETE occult blood SEE BELOW: weston/u L negati ve abnormal MODER ATE Not Available [facility] [address] [place], [address], 12/25/2023 22:07:05 12/25/19 24 12/25/2023 URINA LYSIS , COMPL ETE bilirubin COMMEN T negati ve NEGAT SEBASTIAN Not Available [facility] [address] [place], [address], 12/25/2023 22:07:05 12/25/19 24 12/25/2023 URINA LYSIS , COMPL ETE urobilinogen ,semi-qn 0.2 eu/dL 0.2-1. 0 Not Available [facility] [address] [place], [address], 12/25/2023 22:07:05 12/25/19 24 12/25/2023 URINA LYSIS , COMPL ETE nitrite, urine COMMEN T negati ve NEGAT SEBASTIAN Not Available [facility] [address] [facility], [place], [address], 12/25/2023 22:07:05 12/25/19 24 12/25/2023 CBC WITH DIFFE RENTI AL/PL ATELE T WBC 7.8 x10e3 /uL 3.4-10 .8 Not Available [facility] [address] [place], [address], 12/25/2023 22:07:05 12/25/19 24 12/25/2023 CBC WITH DIFFE RENTI AL/PL ATELE T RBC 3.87 x10e6 /uL 3.77-5 .28 Not Available [facility] [address] [place], [address], 12/25/2023 22:07:05 12/25/19 24 12/25/2023 CBC WITH DIFFE RENTI AL/PL ATELE T hemoglobin 12.3 g/dL 11.1-1 5.9 Not Available [facility] [address] [place], [address], 12/25/2023 22:07:05 12/25/19 24 12/25/2023 CBC WITH DIFFE RENTI AL/PL ATELE T hematocrit 36.9 % 34.0-4 6.6 Not Available [facility] [address] [place], [address], 12/25/2023 22:07:05 12/25/19 24 12/25/2023 CBC WITH DIFFE RENTI AL/PL ATELE T MCV 95 fL 79-97 Not Available [facility] [address] [place], [address], 12/25/2023 22:07:05 12/25/19 24 12/25/2023 CBC WITH DIFFE RENTI AL/PL ATELE T MCH 31.8 pg 26.6-3 3.0 Not Available [facility] [address] [place], [address], 12/25/2023 22:07:05 12/25/19 24 12/25/2023 CBC WITH DIFFE RENTI AL/PL ATELE T MCHC 33.3 g/dL 31.5-3 5.7 Not Available [facility] [address] [place], [address], 12/25/2023 22:07:05 12/25/19 24 12/25/2023 CBC WITH DIFFE RENTI AL/PL ATELE T RDW 13.1 % 11.5-1 4.5 Not Available [facility] [address] [place], [address], 12/25/2023 22:07:05 12/25/19 24 12/25/2023 CBC WITH DIFFE RENTI AL/PL ATELE T platelets 258 x10e3 /uL 150-45 0 Not Available [facility] [address] [place], [address], 12/25/2023 22:07:05 12/25/19 24 12/25/2023 CBC WITH DIFFE RENTI AL/PL ATELE T neutrophils 62 % notest b. Not Available [facility] [address] [place], [address], 12/25/2023 22:07:05 12/25/19 24 12/25/2023 CBC WITH DIFFE RENTI AL/PL ATELE T lymphs 28 % notest b. Not Available [facility] [address] [place], [address], 12/25/2023 22:07:05 12/25/19 24 12/25/2023 CBC WITH DIFFE RENTI AL/PL ATELE T monocytes 7 % notest b. Not Available [facility] [address] [place], [address], 12/25/2023 22:07:05 12/25/19 24 12/25/2023 CBC WITH DIFFE RENTI AL/PL ATELE T eos 2 % notest b. Not Available [facility] [address] [place], [address], 12/25/2023 22:07:05 12/25/19 24 12/25/2023 CBC WITH DIFFE RENTI AL/PL ATELE T basos 1 % notest b. Not Available [facility] [address] [place], [address], 12/25/2023 22:07:05 12/25/19 24 12/25/2023 CBC WITH DIFFE RENTI AL/PL ATELE T neutrophils (absolute) 4.9 x10e3 /uL 1.4-7. 0 Not Available [facility] [address] [place], [address], 12/25/2023 22:07:05 12/25/19 24 12/25/2023 CBC WITH DIFFE RENTI AL/PL ATELE T lymphs (absolute) 2.2 x10e3 /uL 0.7-3. 1 Not Available [facility] [address] [place], [address], 12/25/2023 22:07:05 12/25/19 24 12/25/2023 CBC WITH DIFFE RENTI AL/PL ATELE T monocytes(ab solute) 0.6 x10e3 /uL 0.1-0. 9 Not Available [facility] [address] [place], [address], 12/25/2023 22:07:05 12/25/19 24 12/25/2023 CBC WITH DIFFE RENTI AL/PL ATELE T eos (absolute) 0.1 x10e3 /uL 0.0-0. 4 Not Available [facility] [address] [place], [address], 12/25/2023 22:07:05 12/25/19 24 12/25/2023 CBC WITH DIFFE RENTI AL/PL ATELE T baso (absolute) 0.1 x10e3 /uL 0.0-0. 2 Not Available [facility] [address] [place], [place], [address], 12/25/2023 22:07:05 12/25/19 24 12/25/2023 CBC WITH DIFFE RENTI AL/PL ATELE T immature granulocytes 0.4 % notest b. Not Available [facility] [address] [place], [address], 12/25/2023 22:07:05 12/25/19 24 12/25/2023 CBC WITH DIFFE RENTI AL/PL ATELE T immature grans (abs) 0.0 x10e3 /uL 0.0-0. 1 Not Available [facility] [address] [place], [address], 12/25/2023 22:07:05 12/25/19 24 12/25/2023 CBC WITH DIFFE RENTI AL/PL ATELE T NRBC 0 % 0-0 Not Available [facility] [address] [place], [address], 12/25/2023 22:07:05 12/25/19 24 12/28/2023 BETA STREP GP A CULTU RE beta strep gp A culture NEGATI VE Refer ence Range : Negat sebastian Not Available [facility] ([facility]) [address] [facility], [place], [address], 12/28/2023 05:08:18 12/25/19 24 12/26/2023 TSH+F REE T4 TSH 2.820 uIU/m L 0.450- 4.500 Not Available [facility] ([facility]) [address] [place], [address], 12/30/2023 23:06:55 12/25/19 24 12/26/2023 TSH+F REE T4 T4,free(dire ct) 1.25 NG/dL 0.82-1 .77 Not Available [facility] ([facility]) [address] [facility], [place], [address], 12/30/2023 23:06:55 12/25/19 24 12/25/2023 ALLER GENS W/TOT AL IGE AREA 8 class description COMMEN T Level s of Speci fic IgE Class Descr iptio n of Class ----- ----- ----- ----- ----- -- ----- ----- ----- ----- ----- < 0.10 0 Negat sebastian 0.10 - 0.31 0/I Equiv ocal/ Low 0.32 - 0.55 I Low 0.56 - 1.40 II Moder ate 1.41 - 3.90 III High 3.91 - 19.00 IV Very High 19.01 - 100.0 0 V Very High >100. 00 Very High Not Available [facility] ([facility]) [address] [place], [address], 12/30/2023 23:06:55 12/25/19 24 12/30/2023 ALLER GENS W/TOT AL IGE AREA 8 immunoglobul in E, total 39 IU/mL 6-495 Not Available [facility] ([facility]) [address] [place], [address], 12/30/2023 23:06:55 12/25/19 24 12/30/2023 ALLER GENS W/TOT AL IGE AREA 8 O075-DyE D pteronyssinu s 5.34 kU/L classi v abnormal Not Available [facility] ([facility]) [address] [place], [address], 12/30/2023 23:06:55 12/25/19 24 12/30/2023 ALLER GENS W/TOT AL IGE AREA 8 W675-JoY D farinae 3.72 kU/L classi ii abnormal Not Available [facility] ([facility]) [address] [place], [address], 12/30/2023 23:06:55 12/25/19 24 12/30/2023 ALLER GENS W/TOT AL IGE AREA 8 C788-KpG CAT dander <0.10 kU/L class0 Not Available [facility] ([facility]) [address] [place], [address], 12/30/2023 23:06:55 12/25/19 24 12/30/2023 ALLER GENS W/TOT AL IGE AREA 8 N366-ZsS dog dander <0.10 Not Available [facility] ([facility]) [address] [place], [address], 12/30/2023 23:06:55 12/25/19 24 12/30/2023 ALLER GENS W/TOT AL IGE AREA 8 v947-ApZ bermuda grass <0.10 Not Available [facility] ([facility]) [address] [place], [address], 12/30/2023 23:06:55 12/25/19 24 12/30/2023 ALLER GENS W/TOT AL IGE AREA 8 y373-FmR ronak grass <0.10 Not Available [facility] ([facility]) [address] [place], [address], 12/30/2023 23:06:55 12/25/19 24 12/30/2023 ALLER GENS W/TOT AL IGE AREA 8 W655-GsT cockroach, guyanese <0.10 Not Available [facility] ([facility]) [address] [facility], [place], [address], 12/30/2023 23:06:55 12/25/19 24 12/30/2023 ALLER GENS W/TOT AL IGE AREA 8 H111-OwR penicillium chrysogen <0.10 Not Available [facility] ([facility]) [address] [facility], [place], [address], 12/30/2023 23:06:55 12/25/19 24 12/30/2023 ALLER GENS W/TOT AL IGE AREA 8 R229-RlI cladosporium herbarum <0.10 Not Available [facility] ([facility]) [address] [place], [address], 12/30/2023 23:06:55 12/25/19 24 12/30/2023 ALLER GENS W/TOT AL IGE AREA 8 Q432-PfV aspergillus fumigatus <0.10 Not Available [facility] ([facility]) [address] [place], [address], 12/30/2023 23:06:55 12/25/19 24 12/30/2023 ALLER GENS W/TOT AL IGE AREA 8 U884-GnE alternaria alternata <0.10 Not Available [facility] ([facility]) [address] [place], [address], 12/30/2023 23:06:55 12/25/19 24 12/30/2023 ALLER GENS W/TOT AL IGE AREA 8 G735-GzL maple/box elder <0.10 Not Available [facility] ([facility]) [address], [place], [address], 12/30/2023 23:06:55 12/25/19 24 12/30/2023 ALLER GENS W/TOT AL IGE AREA 8 R336-AhP cedar, mountain <0.10 Not Available [facility] ([facility]) [address], [place], [address], 12/30/2023 23:06:55 12/25/19 24 12/30/2023 ALLER GENS W/TOT AL IGE AREA 8 E378-QqM oak, white <0.10 Not Available [facility] ([facility]) [address], [place], [address], 12/30/2023 23:06:55 12/25/19 24 12/30/2023 ALLER GENS W/TOT AL IGE AREA 8 P077-MmA elm, puerto rican <0.10 Not Available [facility] ([facility]) [address], [place], [address], 12/30/2023 23:06:55 12/25/19 24 12/30/2023 ALLER GENS W/TOT AL IGE AREA 8 U165-CfR maple leaf sycamore <0.10 Not Available [facility] ([facility]) [address] [facility], [place], [address], 12/30/2023 23:06:55 12/25/19 24 12/30/2023 ALLER GENS W/TOT AL IGE AREA 8 S920-VjP cottonwood <0.10 Not Available [facility] ([facility]) [address] [facility], [place], [address], 12/30/2023 23:06:55 12/25/19 24 12/30/2023 ALLER GENS W/TOT AL IGE AREA 8 C840-IrI chey, white <0.10 Not Available [facility] ([facility]) [address] [facility], [place], [address], 12/30/2023 23:06:55 12/25/19 24 12/30/2023 ALLER GENS W/TOT AL IGE AREA 8 Y131-FdX walnut <0.10 Not Available [facility] ([facility]) [address] [facility], [place], [address], 12/30/2023 23:06:55 12/25/19 24 12/30/2023 ALLER GENS W/TOT AL IGE AREA 8 A607-KcT pecan, hickory <0.10 Not Available [facility] ([facility]) [address] [facility], [place], [address], 12/30/2023 23:06:55 12/25/19 24 12/30/2023 ALLER GENS W/TOT AL IGE AREA 8 I893-YtC white mulberry <0.10 Not Available [facility] ([facility]) [address] [facility], [place], [address], 12/30/2023 23:06:55 12/25/19 24 12/30/2023 ALLER GENS W/TOT AL IGE AREA 8 S846-EuU ragweed, short <0.10 Not Available [facility] ([facility]) [address] [facility], [place], [address], 12/30/2023 23:06:55 12/25/19 24 12/30/2023 ALLER GENS W/TOT AL IGE AREA 8 Y560-RlW thistle, beninese <0.10 Not Available [facility] ([facility]) [address] [facility], [place], [address], 12/30/2023 23:06:55 12/25/19 24 12/30/2023 ALLER GENS W/TOT AL IGE AREA 8 V916-JvT pigweed, common <0.10 Not Available [facility] ([facility]) [address] [facility], [place], [address], 12/30/2023 23:06:55 12/25/19 24 12/30/2023 ALLER GENS W/TOT AL IGE AREA 8 E384-ZnA rough marshelder <0.10 Not Available [facility] ([facility]) [address] [facility], [place], [address], 12/30/2023 23:06:55 12/25/19 24 12/30/2023 ALLER GENS W/TOT AL IGE AREA 8 B818-CgD mouse urine <0.10 Not Available [facility] ([facility]) [address] [facility], [place], [address], 12/30/2023 23:06:55 12/25/19 24 12/26/2023 VITAM IN B12 AND FOLAT E vitamin B12 361 pg/mL 232-12 45 Not Available [facility] ([facility]) [address] [facility] [address] [facility], [place], [address], 12/30/2023 23:06:56 12/25/19 24 12/26/2023 VITAM IN B12 AND FOLAT E folate (folic acid), serum 8.2 NG/mL >3.0 A serum folat e kyleigh ntrat ion of less than 3.1 ng/mL is consi dered to repre sent clini orquidea defic iency . Not Available [facility] ([facility]) [address] [facility], [place], [address], 12/30/2023 23:06:56 12/25/19 24 12/26/2023 VITAM IN D, 25-HY DROXY vitamin D, 25-hydroxy 19.5 NG/mL 30.0-1 00.0 below low normal Vitam in D defic iency has been defin ed by the Insti laine of Medic ine and an Endoc rine Socie ty pract ice guide line as a level of serum 25-OH vitam in D less than 20 ng/mL (1,2) . The Endoc rine Socie ty went on to furth er defin e vitam in D insuf ficie ncy as a level betwe en 21 and 29 ng/mL (2). 1. IOM (Inst itute of Medic ine). 2010. Dieta ry refer ence gary es for calci um and DNiles watson [place]: [facility] . 2. Holic k MF, [place], Bisch off-F errar i MODI, et al. Evalu ation , treat ment, and preve ntion of vitam in D defic iency : an Endoc rine Socie ty clini orquidea pract ice guide line. JCEM. 2010; 96(7) :1911 -30. Not Available [facility] ([facility]) [address] [facility] [address] [facility], [place], [address], 12/30/2023 23:06:56 12/25/19 24 12/25/2023 HbA1c (hemo globi n A1c), blood HbA1c 5.1 Not Available In-Office Order Internal Use Only DO Not Attach Compendium DO Not Attach Compendium, Do Not Delete/merge, [id number] 12/25/2023 14:54:54 12/25/19 24 12/25/2023 gluco se, finge rstic k, blood Blood Glucose: mg/dl 88 Not Available In-Off ice Order Internal Use Only DO Not Attach Compendium DO Not Attach Compendium, Do Not Delete/merge, [id number] 12/25/2023 14:54:57 02/06/20 24 02/08/2024 URINE CULTU RE, JULIAN NE urine culture, routine FINAL REPORT Not Available [facility] ([facility]) [address] [facility], [place], [address], 02/08/2024 02:08:45 02/06/20 24 02/08/2024 URINE CULTU REJULIAN NE result 1 NO GROWTH Not Available [facility] ([facility]) [address] [facility] [address] [facility], [place], [address], 02/08/2024 02:08:45 02/06/20 24 02/06/2024 urina lysis , dipst ick Leukocytes Negati ve Not Available In-Office Order Internal Use Only DO Not Attach Compendium DO Not Attach Compendium, Do Not Delete/merge, 02/06/2024 16:59:53 02/06/20 24 02/06/2024 urina lysis , dipst ick Nitrite negati ve Not Available In-Office Order Internal Use Only DO Not Attach Compendium DO Not Attach Compendium, Do Not Delete/merge, 02/06/2024 16:59:53 02/06/20 24 02/06/2024 urina lysis , dipst ick Urobilinogen .2 Not Available In-Of fice Order Internal Use Only DO Not Attach Compendium DO Not Attach Compendium, Do Not Delete/merge, 02/06/2024 16:59:53 02/06/20 24 02/06/2024 urina lysis , dipst ick Protein Negati ve Not Available In-Office Order Internal Use Only DO Not Attach Compendium DO Not Attach Compendium, Do Not Delete/merge, 02/06/2024 16:59:53 02/06/20 24 02/06/2024 urina lysis , dipst ick pH 5.5 Not Available In-Office Order Internal Use Only DO Not Attach Compendium DO Not Attach Compendium, Do Not Delete/merge, 02/06/2024 16:59:53 02/06/20 24 02/06/2024 urina lysis , dipst ick Blood Non-He molyze d: Trace Not Available In-Office Order Internal Use Only DO Not Attach Compendium DO Not Attach Compendium, Do Not Delete/merge, 02/06/2024 16:59:53 02/06/20 24 02/06/2024 urina lysis , dipst ick Specific [place] 1.025 Not Available In-Off ice Order Internal Use Only DO Not Attach Compendium DO Not Attach Compendium, Do Not Delete/merge, 02/06/2024 16:59:53 02/06/20 24 02/06/2024 urina lysis , dipst ick Ketone Negati ve Not Available In-Office Order Internal Use Only DO Not Attach Compendium DO Not Attach Compendium, Do Not Delete/merge, [id number] 02/06/2024 16:59:53 02/06/20 24 02/06/2024 urina lysis , dipst ick Bilirubin Negati ve Not Available In-Office Order Internal Use Only DO Not Attach Compendium DO Not Attach Compendium, Do Not Delete/merge, [id number] 02/06/2024 16:59:53 02/06/20 24 02/06/2024 urina lysis , dipst ick Glucose Negati ve Not Available In-Office Order Internal Use Only DO Not Attach Compendium DO Not Attach Compendium, Do Not Delete/merge, [id number] 02/06/2024 16:59:53 02/06/20 24 02/06/2024 urina lysis , dipst ick Appearance Clear Not Available In-Offi ce Order Internal Use Only DO Not Attach Compendium DO Not Attach Compendium, Do Not Delete/merge, 02/06/2024 16:59:53 02/06/20 24 02/06/2024 urina lysis , dipst ick Color Yellow Not Available In-Office Order Internal Use Only DO Not Attach Compendium DO Not Attach Compendium, Do Not Delete/merge, 02/06/2024 16:59:53 05/09/20 24 05/10/2024 TSH TSH 1.750 uIU/m L 0.450- 4.500 Not Available [facility] ([facility]) [address] [facility] [address] [facility], [place], [address], 05/10/2024 08:25:23 05/09/20 24 05/10/2024 VITAM IN D, 25-HY DROXY vitamin D, 25-hydroxy 42.2 NG/mL 30.0-1 00.0 Vitam in D defic iency has been defin ed by the Insti tute of Medic ine and an Endoc rine Socie ty pract ice guide line as a level of serum 25-OH vitam in D less than 20 ng/mL (1,2) . The Endoc rine Socie ty went on to [facility] er defin e vitam in D insuf ficie ncy as a level betwe en 21 and 29 ng/mL (2). 1. IOM (Inst itute of Medic ine). 2010. Dieta ry refer ence intak es for calci um and D. Carolyne watson [place]: [facility] . 2. Rick honeycutt [place], [place], Jack off-F errar i MODI, et al. Evalu ation , treat ment, and preve ntion of vitam in D defic iency : an Endoc rine Socie ty clini orquidea pract ice guide line. JCEM. 2010; 96(7) :1911 -30. Not Available [facility] ([facility]) [address] [facility], [place], [address], 05/10/2024 08:25:23 Result Notes None recorded. Problems Name Problem SNOMED Code Status Onset Date Resolution Date Notes Provider Name and Address Organization Details Recorded Time Divertic ular disease of colon 075794123 [facility]: Jose osman,[address] [place], [address], [facility] - SIF 3 12:37:21 Lactose intolera nce Active [facility]n: Jose osman,[address] [place], [address], [facility] - SIF 3 12:37:21 Atypical squamous cells of undeterm ined signific ance on cervical Papanico laou smear 170032435 Completed 02/25/2020 Leeanna Katz RN null, [place] - S[facility] 0 14:21:16 HPV - Human papillom avirus test positive Completed 10/30/2018 [facility]n: Jose osman,[address] [place], [address], [facility] - SIF 9 16:17:42 Corpus luteum cyst 019648080 Completed 11/14/2022 [facility]n: Jose osman,[address] [place], [address], [place] - [facility] 3 12:37:30 Body mass index 25-29 - overweig ht 879653868 Active 2022 GANESH Bo Attn: Accountin g,[address] [facility], [place], [address], [place] - [facility] 4 17:26:35 Nasal congesti on 90537369 Active 2023 KAYLI BoBC Attn: Accountin g,[address] [facility], [place], [address], [place] - [facility] 4 17:26:35 Hypoglyc emia 111243961 Completed 202305/09/2024 Removal Reason: resolved GANESH Bo Attn: Accountin g,[address] [facility], [place], [address], [place] - [facility] 4 16:24:57 Environm ental allergy 807681492 Active 2023 JAZLYN Bo-BC Attn: Accountin g,[address] [facility], [place], [address], [place] [facility] 4 17:26:35 Vitamin D deficien cy 26928166 Active 2023 KAYLI BoBC Attn: Accountin g,[address] [facility], [place], [address], [place] - [facility] 4 17:26:35 Acute urinary tract infectio n 174867318 Completed 202305/09/2024 Removal Reason: resolved KAYLI BoBC Attn: Accountin g,[address] [facility], [place], [address], [place] - [facility] 4 16:24:50 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, [place], [address], [place] - SI 4 16:24:39 [facility] 602[facility] Active 2023 GANESH Bo Attn: Jose osman,[address] [facility], [place], [address], [place] - [facility] 4 16:27:13 Urinary tract infectio us disease 51748725 Completed 08/29/2018 Leeanna Katz RN null, [place] - SI 8 15:28:41 Missed miscarri age 51515561 Completed 02/25/2020 Leeanna Katz RN null, [place] - [place] 0 14:21:34 Missed miscarri age 36195450 Completed Desiree Nevarez [facility], [place] - SI 6 12:46:53 Partial hydatidi form mole 184696151 Completed 11/14/2022 GANESH Bo Attn: Jose jacqui,[address] [facility], [place], [address], [facility] - SI 3 12:37:30 Disorder of menstrua tion 967530714 Completed 02/25/2020 Leeanna Katz RN null, [place] - [place] 0 14:21:26 Problem Notes None recorded. Procedures Surgical History Date Name Laterality Status Provider Name and Address Organization Details Recorded Time 4 Date of Last Pap Smear completed GANESH Bo Attn: Accounting,[address] [place], [address], [facility] - SI 12/25/2023 15:15:25 5 Dilation and Curettage completed Mariela Hancock [place] - [place] 06/15/2015 16:28:52 5 Colposcopy completed Kristopher Matthews MD Attn: Accounting,[address] [place], [address], [facility] - SIF 10/21/2014 13:55:54 Imaging Results None recorded. Procedure Notes None recorded. Medical Equipment None Reported. Allergies No known drug allergies Medications Name Sig Start Date Stop Date Status Note LastModified by Organization Details LastModified Time medroxypro gesterone 10 mg tablet 02/24 completed Not Available Not Available Not Available methocarba mol 500 mg tablet Take 1 tablet as needed by oral route. 06/05 completed Not Available Not Available Not Available Colace 100 mg capsule Take 1 capsule every day by oral route. 11/14 completed Not Available Not Available Not Available hydrocorti sone-pramo xine 2.5 %-1 % rectal cream Insert 1 applicat ion 4 times a day by rectal route. 11/14 completed Not Available Not Available Not Available cetirizine 10 mg tablet TAKE 1 TABLET BY MOUTH ONCE DAILY active Not Available Not Available No t Available ibuprofen 800 mg tablet Take 1 tablet 3 times a day by oral route. 10/30 completed Not Available Not Available Not Available phenazopyr idine 200 mg tablet TAKE 1 TABLET BY MOUTH THREE TIMES DAILY FOR 2 DAYS 12/24 completed Not Available Not Available Not Available metronidaz ole 500 mg tablet 08/29 completed Not Available Not Available Not Available acetaminop hen 300 mg-codeine 30 mg tablet 08/29 completed Not Available Not Available Not Available ciprofloxa farzad 500 mg tablet 08/29 completed Not Available Not Available Not Available sulfametho xazole 800 mg-trimeth oprim 160 mg tablet TAKE 1 TABLET BY MOUTH EVERY 12 HOURS FOR 10 DAYS 05/09 completed Not Available Not Available Not Available Medrol 4 mg tablet Take 1 tablet 4 times a day by oral route. 02/05 completed Not Available Not Available Not Available levothyrox ine 25 mcg tablet Take 1 tablet every day by oral route in the morning, for subclini orquidea hypothyr oidism. active 11/08/24 : Refill x [address] [facility] . Not Available Not Available Not Available Vitamin tablet Take 1 tablet every day by oral route for 30 days. 06/05 completed Not Available Not Available Not Available amoxicilli n 875 mg tablet TAKE 1 TABLET BY MOUTH EVERY 12 HOURS FOR 10 DAYS 02/05 completed Not Available Not Available Not Available doxycyclin e monohydrat e 100 mg capsule active Not Available Not Available Not Available naproxen sodium 550 mg tablet active Not Available Not Available No t Available fluoxetine 10 mg capsule active Not Available Not Available Not Available ergocalcif cuba (vitamin D2) 1,250 mcg (50,000 unit) capsule Take 1 capsule by mouth once a week active Not Available Not Available No t Available lorazepam 1 mg tablet active Not Available Not Available Not Available polyethyle ne glycol 3350 17 gram/dose oral powder Take 17 g every day by oral route. 11/14 completed Not Available Not Available Not Available Anusol-HC 25 mg rectal suppositor y Insert 1 supposit ory twice a day by rectal route for 14 days. 03/19 completed Not Available Not Available Not Available methylpred nisolone 4 mg tablets in a dose pack TAKE BY MOUTH DIRECTED ON INSIDE OF PACKAGE 02/05 completed Not Available Not Available Not Available ondansetro n 4 mg disintegra ting tablet 08/29 completed Not Available Not Available Not Available fluoxetine 20 mg capsule active Not Available Not Available Not Available dicyclomin e 10 mg capsule Take 1 capsule 3 times a day by oral route. 10/30 completed Not Available Not Available Not Available loratadine 10 mg tablet Take 1 tablet every day by oral route. 08/29 completed Not Available Not Available Not Available Metamucil (sugar) oral powder Take 3.4 g every day by oral route in the morning. 02/24 completed Not Available Not Available Not Available nitrofuran toin monohydrat e/macrocry stals 100 mg capsule TAKE 1 CAPSULE BY MOUTH EVERY 12 HOURS FOR 7 DAYS 02/05 completed Not Available Not Available Not Available Boostrix Tdap 2.5 Lf unit-8 mcg-5 Lf/0.5 mL intramuscu lar syringe 10/04 completed Not Available Not Available Not Available Complete DHA 29 mg iron-1 mg-200 mg oral pack TAKE ONE PACKET BY MOUTH ONCE DAILY 06/05 completed Not Available Not Available Not Available Metamucil (with sugar) 3.4 gram/7 gram oral powder Take 3.4 g every day by oral route as directed . 11/14 completed Not Available Not Available Not Available Enskyce 0.15 mg-0.03 mg tablet Take 1 tablet every day by oral route as directed . 08/29 completed Not Available Not Available Not Available PrePlus 27 mg iron-1 mg tablet active Not Available Not Available No t Available Vitals Date Recorded Body height Body mass index (BMI) Body weight Body temperature Oxygen saturation Oxygen saturation in Arterial blood by Pulse oximetry Heart rate Systolic blood pressure Diastolic blood pressure Provider Name and Address Organization Details Last Updated DateTime 3 160.02 cm 27.7 kg/m2 86490.8 1 g 98 [degF] 98 % 98 % 74 /min 120 mm[Hg] 80 mm[Hg] Sheri lorenz MA [facility] 3 12:21:47 Date Recorded Body height Body mass index (BMI) Body weight Body temperature Heart rate Systolic blood pressure Diastolic blood pressure Provider Name and Address Organization Details Last Updated DateTime 4 160.02 cm 28.3 kg/m2 58147.9 9 g 97.7 [degF] 72 /min 116 mm[Hg] 62 mm[Hg] Abdiel Fernandez MA [facility] 4 14:54:50 Date Recorded Body height Body mass index (BMI) Body weight Body temperature Heart rate Systolic blood pressure Diastolic blood pressure Provider Name and Address Organization Details Last Updated DateTime 4 160.02 cm 28.4 kg/m2 64684.1 8 g 98 [degF] 78 /min 110 mm[Hg] 64 mm[Hg] Abdiel Fernandez MA [facility] 4 17:08:23 Date Recorded Body height Body mass index (BMI) Body weight Body temperature Heart rate Systolic blood pressure Diastolic blood pressure Provider Name and Address Organization Details Last Updated DateTime 4 160.02 cm 29.1 kg/m2 70603.1 5 g 98.4 [degF] 88 /min 110 mm[Hg] 72 mm[Hg] Abdiel Fernandez MA [facility] 4 15:45:41 Date Recorded Body height Body mass index (BMI) Body weight Oxygen saturation Oxygen saturation in Arterial blood by Pulse oximetry Heart rate Body temperature Systolic blood pressure Diastolic blood pressure Provider Name and Address Organization Details Last Updated DateTime 4 160.02 cm 29.2 kg/m2 22954.3 4 g 98 % 98 % 66 /min 98.2 [degF] 102 mm[Hg] 66 mm[Hg] Abdiel Fernandez MA [place] - [place] 4 15:48:19 Social History Question Answer Notes LastModified by Organizat ion Details LastModified Time Tobacco Smoking Status Never Smoker Maye Corral MA null, [place] - [place] 09/18/2014 15:47:17 What Is Your Level Of Alcohol Consumption? None Information not available 09/18/2014 Are You Blind Or Do You Have Difficulty Seeing? No Information not available 05/28/2015 Is Blood Transfusion Acceptable In An Emergency? Yes [email or web address] Information not available 09/18/2014 What Is Your Level Of Caffeine Consumption? Occasional [email or web address] Information not available 09/18/2014 How Much Tobacco Do You Chew? None [email or web address] Information not available 09/18/2014 In The 14 Days Before Symptom Onset, Have You Had Close Contact With A Laboratory-confir med COVID-19 While That Case Was Ill? No Information not available 11/14/2022 In The 14 Days Before Symptom Onset, Have You Had Close Contact With A Person Who Is Under Investigation For COVID-19 While That Person Was Ill? No Information not available 11/14/2022 Have You Been To An Area Known To Be High Risk For COVID-19? No Information not available 11/14/2022 Are You Currently Employed? Yes [email or web address] Information not available 09/18/2014 Are You Deaf Or Do You Have Serious Difficulty Hearing? No Information not available 05/28/2015 What Type Of Diet Are You Following? REGULAR [email or web address] Information not available 09/18/2014 Do You Or Have You Ever Used E-cigarettes Or Vape? 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 No Information not available 11/14/2022 Live Alone Or With Others? With Others [email or web address] Information not available 09/18/2014 What Was The Date Of Your Most Recent Tobacco Screening? 08/12/2024 [email or web address] Information not available 08/12/2024 How Many Children Do You Have? 1 Information not available 11/14/2022 Performs Monthly Self-breast Exam? Yes [email or web address] Information no t available 09/18/2014 Do You Use Protection During Sex? Usually Information not available 09/18/2014 What Is Your Relationship Status? Information not available 11/14/2022 Do You Use Your Seat Belt Or Car Seat Routinely? Yes Information not available 11/14/2022 Seat Belts Used Routinely Yes [email or web address] Information not available 09/18/2014 Are You Sexually Active? Yes [email or web address] Information not available 09/18/2014 Do You Have Smoke And Carbon Monoxide Detectors In Your Home? Yes Information not available 11/14/2022 Are You Passively Exposed To Smoke? No Information no t available 11/14/2022 Do You Or Have You Ever Used Smokeless Tobacco? Never Used Smokeless Tobacco Information not available 02/25/2020 How Much Tobacco Do You Smoke? No [email or web address] Information not available 09/18/2014 General Stress Level Low [email or web address] Information not available 09/18/2014 Do You Feel Stressed (tense, Restless, Nervous, Or Anxious, Or Unable To Sleep At Night)? [id number] Information not available 11/14/2022 Do You Use Any Illicit Or Recreational Drugs? No Information not available 11/14/2022 Do You Use Sunscreen Routinely? Yes Information not available 09/18/2014 Has Tobacco Cessation Counseling Been Provided? No Information not available 11/14/2022 Do You Or Have You Ever Used Any Other Forms Of Tobacco Or Nicotine? No Information not available 11/14/2022 Sex: Unknown Functional Status Question Answer Note LastModified by Organizat ion Details LastModified Time Do you have difficulty walking or climbing stairs? No Information not available 05/28/2015 Do you have difficulty doing errands alone? Yes Information not available 05/28/2015 Are you able to care for yourself? Yes Information not available 11/14/2022 Do you have difficulty dressing or bathing? No Information not available 05/28/2015 What is your exercise level? Occasional Information not available 09/18/2014 Mental Status Question Answer Note LastModified by Organizat ion Details LastModified Time Do you have difficulty concentrating, remembering or making decisions? No short term memory loss-Iwona persaud Information not available 05/28/2015 Family History Relationship Description Onset Age of this Age Resolved Age Notes LastModified by Organization Details LastModified Time Father Hypertensive disorder [email or web address] Not available 2015 16:28:56 Mother Hypertensive disorder 62 [email or web address] Not available 2023 15:12:53 Mother Kidney disease 62 [email or web address] Not available 2017 15:41:26 Mother History of calculus of kidney 62 [email or web address] Not available 2017 15:41:46 Mother Sepsis 62 [email or web address] Not available 15:42:07 Sister Hypertensive disorder 45 [email or web address] Not available 2017 15:42:41 Medical History Condition Response Other Y Depression N Headaches/Migraines N Anxiety Disorder N Arthritis N Polyps N Infertility N Acid Reflux (GERD) N Cancer N Stroke N Fibromyalgia N Kidney Disease N Heart Problems N Kidney or Bladder Problems N Acne N Eating Disorder N Asthma N Hepatitis N Breast Cancer N Lung Disease N Breast Problem N Anesthesia Complications N Endometriosis N High Cholesterol N Thyroid Problems N GI Problems N Anemia N Diabetes N Ovarian Cancer N Blood Transfusions N Abuse/Domestic Violence N Heart Disease N Pre-Eclampsia N Hypertension N Osteoporosis N Gynecological History Statement/Question Response Abnormal Pap Y Flow Moderate Date of LMP 07/15/2024 On BCP's at Conception? Y STIs/STDs N HPV Vaccine N Duration of Flow (days) 4 Age at Menarche 13 Current Control Method Condoms Frequency of Cycle (Q days) 27 Sexually Active? Y Menses Monthly Y Date of Last Pap Smear 12/18/2023 Sexual Problems? N LMP Definite Desired Control Method None Obstetrics History GPAL:G 2 P 0 0 1 1 Type Value Multiple Births 0 Full Term 0 Induced 0 Spontaneous 1 Premature 0 Living 1 Ectopics 0 Total 2 Immunizations Vaccine Type Date Status Note Provider Nam e and Address Organization Details Recorded Time Tdap 0 completed Leeanna Katz RN [facility], [facility] 02/25/2020 14:20:16 Influenza, split virus, quadrivalent, preservative 8 completed Not Available [facility] 09/28/2019 02:36:23 Tdap 0 completed EDU Chin [facility], [facility] 06/26/2018 14:54:22 Past Encounters Encounter ID Performer Location Encounter Start Date Encounter Closed Date Diagnosis/Indication Diagnosis SNOMED-CT Code Diagnosis ICD10 Code Diagnosis Note [id number] EMILY El [facility] (INVESTMENT FUND MANAGER) [address] [place] [address] [id number] 8 09/18/2014 15:07:00 10/01/2014 14:56:29 Gynecologic examination [id number] Disorder o f menstruation [id number] Michelle Huerta RN [facility] (INVESTMENT FUND MANAGER) [address] [place] [address] [id number] 8 10/21/2014 11:58:02 10/21/2014 15:40:41 Atypical squamous cells of undetermined significance on cervical Papanicolaou smear 879599147 HPV - Gabriela n papillomavirus test positive 660300211 Corpus luteum cyst 749010123 [id number] [facility] (IN[facility]ST[facility] FUND MANAGER) [address] [place] [address] [id number] 8 10/21/2014 15:41:17 10/21/2014 15:43:01 [id number] Mariela De Leon e HC (INVESTMENT FUND MANAGER) [address] [place] [address] [id number] 8 12/08/2014 16:25:35 12/08/2014 18:25:37 Urinary tract infectious disease 16691988 bladder [id number] Mariela De Leon e HC (INVESTMENT FUND MANAGER) [address] [place] [address] [id number] 8 04/17/2015 15:16:00 04/22/2015 00:06:54 - urine test confirms [id number] Mariela Santi [facility] [place] [facility] (INVESTMENT FUND MANAGER) [address] [place] [address] [id number] 8 05/01/2015 16:02:40 05/04/2015 12:08:35 [id number] Bellmissyill e [facility] (INVESTMENT FUND MANAGER) [address] [place] [address] [id number] 8 05/22/2015 16:58:42 05/26/2015 11:30:56 Missed miscarriage [id number] [facility] [place] [facility] (INVESTMENT FUND MANAGER) [address] [place], [place] [address] 8 05/25/2015 10:18:23 05/25/2015 16:54:38 [id number] W Ileanaill e HC (INVESTMENT FUND MANAGER) [address] [place] [address] [id number] 8 05/28/2015 10:46:43 06/01/2015 11:29:08 Missed miscarriage [id number] Desiree Nevarez [place] [facility] (INVESTMENT FUND MANAGER) [address] [place] [address] [id number] 8 06/15/2015 16:04:18 06/18/2015 00:20:03 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 (INVESTMENT FUND MANAGER) [address] [place] [address] [id number] 8 06/24/2015 15:47:27 07/01/2015 10:55:41 Partial hydatidiform mole 651332675 O01.1 [id number] Mariela Reyna Izzyevill e HC (INVESTMENT FUND MANAGER) [address] [place] [address] [id number] 8 06/29/2015 16:59:01 07/01/2015 16:36:59 [id number] Suad Floyd MA [facility] [place] [facility] (INVESTMENT FUND MANAGER) [address] [place] [address] [id number] 8 07/01/2015 15:41:35 07/01/2015 17:47:20 [id number] Kristopher Matthews MD W [facility] (INVESTMENT FUND MANAGER) [address] [place] [address] [id number] 8 07/03/2015 15:13:46 07/05/2015 20:11:20 Partial hydatidiform mole 840062451 O01.1 [id number] JAMES Nath e HC (INVESTMENT FUND MANAGER) [address] [place] [address] [id number] 8 07/10/2015 16:34:36 07/14/2015 13:52:02 Partial hydatidiform mole 800206207 O01.1 [id number] Kristopher Matthews MD W Haley e HC (INVESTMENT FUND MANAGER) [address] [place] [address] [id number] 8 07/13/2015 16:00:39 07/14/2015 17:16:28 Partial hydatidiform mole 096287034 O01.1 Urinary tr act infectious disease 68488819 N39.0 bladder [id number] Jordyn Gudino RN W [facility] e [facility] (INVESTMENT FUND MANAGER) [address] [place] [address] [id number] 8 07/14/2015 16:52:19 07/14/2015 17:51:42 [id number] Sylvia Maganamissyzhang tom HC (INVESTMENT FUND MANAGER) [address] [place] [address] [id number] 8 07/27/2015 16:30:46 07/31/2015 11:03:11 Partial hydatidiform mole 068339378 O01.1 [id number] Mariela Dalal HC (INVESTMENT FUND MANAGER) [address] [place] [address] [id number] 8 08/03/2015 16:45:27 08/03/2015 17:29:04 [id number] Mariela Dalal HC (INVESTMENT FUND MANAGER) [address] [place] [address] [id number] 8 08/10/2015 16:48:04 08/10/2015 17:23:32 [id number] Mariela Dalal HC (INVESTMENT FUND MANAGER) [address] [place] [address] [id number] 8 08/17/2015 16:44:45 08/17/2015 17:34:02 [id number] Mariela Dalal HC (INVESTMENT FUND MANAGER) [address] [place] [address] [id number] 8 08/24/2015 17:03:08 08/26/2015 12:55:19 [id number] Mariela Santi Axel De Leon e HC (INVESTMENT FUND MANAGER) [address] [place] [address] [id number] 8 08/31/2015 17:11:45 08/31/2015 17:51:36 [id number] Mariela Santi Haley e HC (INVESTMENT FUND MANAGER) [address] [place] [address] [id number] 8 09/07/2015 16:34:09 09/09/2015 11:02:43 [id number] Cecy Roque [facility] (INVESTMENT FUND MANAGER) [address] [place] [address] [id number] 8 09/14/2015 16:28:22 09/15/2015 12:29:24 [id number] Mariela Santi Axel De Leon e HC (INVESTMENT FUND MANAGER) [address] [place] [address] [id number] 8 09/21/2015 17:02:36 09/21/2015 17:42:02 Partial hydatidiform mole [id number] O01.1 [id number] Kristopher Matthews MD [facility] (INVESTMENT FUND MANAGER) [address] [place] [address] [id number] 8 09/29/2015 16:54:52 09/30/2015 10:48:29 Partial hydatidiform mole [id number] O01.1 [id number] [facility] (INVESTMENT FUND MANAGER) [address] [place] [address] [id number] 8 10/27/2015 16:12:38 11/05/2015 10:49:30 Partial hydatidiform mole [id number] O01.1 [id number] [facility] (INVESTMENT FUND MANAGER) [address] [place] [address] [id number] 8 02/10/2016 15:32:17 02/15/2016 16:05:17 Partial hydatidiform mole 240856683 O01.1 Gynecologi c examination 39613886 Z01.419 [id number] MD Axel [facility]eh [facility] (INVESTMENT FUND MANAGER) [address] [place] [address] [id number] 8 06/01/2016 16:08:45 06/08/2016 16:03:04 Partial hydatidiform mole 091566271 O01.1 with negative test since 10/2015 [id number] MD Axel Yeh (INVESTMENT FUND MANAGER) [address] [place] [address] [id number] 8 11/30/2016 16:46:05 12/08/2016 15:23:44 Partial hydatidiform mole 541984874 O01.1 [id number] Kristopher Matthews MD Haley [facility] (INVESTMENT FUND MANAGER) [address] [place] [address] [id number] 8 06/01/2017 16:46:07 06/02/2017 11:59:20 Contraception care management 469840380 Z30.9 [id number] MD Axel Yeh [place] [facility] (INVESTMENT FUND MANAGER) [address] [place] [address] [id number] 8 07/12/2017 16:57:54 07/20/2017 14:56:07 Contraception care management 335718875 Z30.9 Partial hy datidiform mole 457293911 O01.1 Gynecologi c examination 54784914 Z01.411 Tension-type headache 39 1928428 G44.126 [id number] Stephany Carrera [facility] (INVESTMENT FUND MANAGER) [address] [place] [address] [id number] 8 12/11/2017 16:40:43 12/12/2017 19:48:23 Contraception care 991918889 Z30.40 [id number] [facility] [address] [address] 06/05/2018 10:06:54 06/07/2018 17:56:30 Urinary symptoms 380541195 R39.9 Microscopic hematuria 19 1286545 R31.21 Posterior rhinorrhea 758 87879 R09.82 [id number] [facility] [address] [address] 06/14/2018 14:52:27 06/18/2018 16:14:31 Muscle pain 03152520 M79.10 Abdominal wall pain 1620 44976 R10.9 R abdominal wall pain for 3 weeks progressiv franc worse Pain in bi lateral legs 0448011706 4912067 M79.604 M79.605 Administra tion of influenza vaccine 82226815 Z23 [id number] [facility] [address] [place] [address] 06/26/2018 14:40:23 07/05/2018 17:16:35 Adult health examination 270083837 Z00.00 Erythrocyt e sedimentation rate above reference range 987839270 R70.0 Posterior rhinorrhea 758 29653 R09.82 Abdominal wall pain 1620 24046 R10.9 R abdominal wall pain improvemen t will review u/s Hyperlipid emia screening 769908903 Z13.220 patient to have lipids checked today despite non-fastin g as she cant return 2/2 work Pain in bi lateral legs 8993346694 9743527 M79.604 M79.605 improvemen t [id number] Haris Marques [facility] [address] [place] [address] 08/29/2018 15:06:38 09/05/2018 13:58:55 Gynecologic examination 68673685 Z01.411 Self breast exam calcium rich foods handout vitamin D 2000 iu daily exercise weight loss diet Last pap 07/12/2017 normal neg HPV pap 02/10/2016 normal neg HPV pap 09/18/2014 normal neg HPV pap 03/17/2014 ASCUS pos HPV Diverticul ar disease of colon 873547951 K57.30 continue Metamucil daily high fiber diet increase water if symptoms persist will consider GI referral [id number] [address] [facility] [address] [address] 4 10/30/2018 15:39:41 10/31/2018 10:05:18 Diverticular disease of colon 388561632 K57.30 continue Metamucil daily high fiber diet increase water if symptoms persist will consider GI referral Amenorrhea 20483343 N91. 2 take vitamin daily Lactose intolerance 2674 34341 E73.9 use lactaid drops prn [id number] Heriberto Nevarez MD [facility] [address] [place] [address] 02/25/2020 14:03:49 02/26/2020 09:07:13 Internal hemorrhoids 48367431 K64.8 Constipation 81375248 K5 9.00 Depression screening 171 752284 Z13.31 negative [id number] [facility] [address] [place] [address] 4 03/19/2020 14:41:18 03/20/2020 09:04:47 Internal hemorrhoids 49246628 K64.8 Constipation 83801364 K5 9.00 External hemorrhoids 239 45546 K64.4 [id number] [facility] [address] [place] [address] 11/14/2022 12:11:57 11/15/2022 13:37:38 Acute urinary tract infection 944845258 N39.0 Body mass index 25-29 - overweight 194949135 Z68.27 BMI 27.7Ht 5' 3 Healthy weight range 105-145 Depression screening 171 771001 Z13.31 negative Mental hea lth screening 398107530 Z13.39 negative [id number] [facility] [address] [address] 12/25/2023 14:45:19 12/28/2023 15:51:01 Fatigue 48053381 R53.83 Adult [facility] th examination 861195621 Z00.00 38 y/o HF presents for general check up. Patient works at 5 am to 2:30 pm she has been feeling tired. The patient had lab work done at work back in 09/2023 which showed a low blood sugar. The patient denies any headaches, mental confusion, trembling, sweating, palpitatio ns, anxious etc., She voices on the morning of her blood test at work she was fasting. Reports she usually has coffee and cookies upon getting ready for work then eats lunch around 11;30 then when she gets home. Depression screening 171 545181 Z13.31 negative Mental hea lth screening 390336530 Z13.39 negative Body mass index 25-29 - overweight 294416184 Z68.27 BMI 28Ht 5' 3 Healthy weight range 105-145 Serous otitis media 8032 7007 H65.02 Sore throat 952333395 J0 2.9 Nasal congestion 7548994 0 R09.81 Hypoglycemia 631670581 E 16.2 Patient BS on lab results from work show 52 at 8:00 amPatient BS at 88 todayPatie nt had lunch at 11:30 amPatient had coffee and cookies at 5:00 am [id number] [facility] [address] [address] 4 02/06/2024 16:54:00 02/12/2024 13:46:06 Environmental allergy 840818423 T78.49XD continue cetirizine Urinary tr act infectious disease 53501820 N39.0 patient voices no symptoms like beforeurin e dip shows trace bloodwill send for c/s Vitamin D deficiency 347 97349 E55.9 Vitamin D 19.5Start Rx Vitamin D2 62300 IU once weekly for 12 weeksonce you complete RX buy otc vitamin D3 1000 IU once daily [facility] hypothyroidism 68474582 E02 12/25/2023T SH 2.82Take 1/2 hour before eating [id number] [facility] [address] [place] [address] 4 05/09/2024 15:36:28 05/10/2024 13:51:11 Vitamin D deficiency 65383653 E55.9 Vitamin D 19.5buy otc vitamin D3 1000 IU once daily Body mass index 25-29 - overweight 047955340 Z68.27 BMI 29.1Ht 5' 3 Healthy weight range 105-145 Overweight 977284626 E66 .3 BMI 29.1Ht 5' 3 Healthy weight range 105-145 [facility]clin[facility] hypothyroidism 41285729 E02 12/25/2023T SH 2.82Take 1/2 hour before eating [id number] [facility] [address] [address] 4 08/12/2024 15:42:46 08/14/2024 15:20:51 Subclinical hypothyroidism 08211046 E02 12/25/2023T SH 2.828/29/2 024TSH 1.750Take 1/2 hour before eating Body mass index 25-29 - overweight 403541417 Z68.27 BMI 29.2Ht 5' 3 Healthy weight range 105-145 Overweight 541223625 E66 .3 BMI 29.2Ht 5' 3 Healthy weight range 105-145 Health Concerns Section Related Observation LastModified by Organization Detai ls LastModified Time None Recorded Concern Status LastModified by Organization Details LastModified Time None Recorded Advance Directives Directive None Recorded Payers Encounter Date Sequence Insurance Name Policy Number Policy Silva Covered Member ID Silva Member ID Guarantor Name 11/14/2022 1 [facility] ON OR AFTER 03/11/21 (MEDICAID REPLACEMENT - HMO) Pily Staley [id number] Pily Staley 12/25/2023 1 [facility] ON OR AFTER 03/11/21 (MEDICAID REPLACEMENT - HMO) Pily Staley [id number] Pily Staley 02/06/2024 1 [facility] ON OR AFTER 03/11/21 (MEDICAID REPLACEMENT - HMO) Pily Staley [id number] Pily Staley 05/09/2024 1 [facility] ON OR AFTER 03/11/21 (MEDICAID REPLACEMENT - HMO) Pily Staley [id number] Pily Staley 08/12/2024 1 [facility] ON OR AFTER 03/11/21 (MEDICAID REPLACEMENT - HMO) Pily Staley [id number] Pily Staley Notes Date Note Type Note Provider Name and Address Organization Details Recorded Time 11/14/2022 text/html DysuriaReported bypatient.Quality:bur angel;pressure;pain Severity:moderate Duration:intermittent Timing:better; sudden Context:no prior history of STDs; no known exposure to STD; denies possible ;sexually active; LMP11/10/2022 Modifying Factors:nothing gives relief; used otc meds but did not help Associated Symptoms:no fever; no blisters on genitals; no rash on genitals; no hesitancy; no blood in the urine; normal urine stream; no flank pain;vaginal pain GANESH Bo Attn: Accounting,[address] [place], [address], [facility] 11/14/2022 12:43:25 12/25/2023 text/html 38 y/o HF presen ts for general check up. Patient works at 5 am to 2:30 pm she has been feeling tired. The patient had lab work done at work back in 09/2023 which showed a low blood sugar. The patient denies any headaches, mental confusion, trembling, sweating, palpitations, anxious etc., She voices on the morning of her blood test at work she was fasting. Reports she usually has coffee and cookies upon getting ready for work then eats lunch around 11;30 then when she gets home. GANESH Bo Attn: Accounting[address] [place], [address], [facility] 12/25/2023 15:41:53 02/06/2024 text/html 38 y/o HF presen ts for abnormal test results follow up. The patient voices she completed antibiotics as directed and no longer feels urinary symptoms. She has bee using antihistamine which has helped with her allergies. She has been taking her vitamin D 2 booster for low vitamin D level. SHe reports feeling more energized. She voices that still feels like something in her throat and has to frequently try to clear throat. She has occasional constipation as well. Since her labs show subclinical hypothyroidism will start low dose synthroid to see if any difference noted. [employer] d0faprub labs in 3 months. GANESH Bo Attn: Accounting[address] [place], [address], [facility] 02/07/2024 17:26:15 05/09/2024 text/html 38 y/o HF presen ts for follow up. The patient voices she her vitamin D 2 booster for low vitamin D level. SHe reports feeling more energized. She voices that still feels like something in her throat and has to frequently try to clear throat. She has occasional constipation as well. Since her labs show subclinical hypothyroidism was started on low dose synthroid to see.. Will recheck labs today GANESH Bo Attn: Accounting,[address] [place], [address], [facility] 05/09/2024 16:27:50 08/12/2024 text/html 39 y/o HF presen ts for follow up. She voices that sensation of like something in her throat and has to frequently try to clear throat has resolved. Her occasional constipation has improved as well. Since her labs show subclinical hypothyroidism was started on low dose synthroid to see. Will refill meds today and recheck at follow up[. GANESH Bo Attn: Accounting[address] [place], [address], [facility] 08/12/2024 15:56:26 OBGyn Episode Ob Episode Information Episode Created Date Number of Fetuses Patient Bloodtype Patient rh Status Prepregnancy Weight lbs Domestic Partner Domestic Partner Phone Father Name Presales Senior Specialist Status 12/23/19 20 1 CLOSED Fetus Data First Name Last Name Admitted to NICU Weight (g) Sex Living Outcome Pediatric Complications Fetus ID Race Codes Race Delivery Type 3203.26 6704 M Full Term [id number] Vaginal Sahil Calculation Initial Sahil Date Initial Exam Date Initial Exam Provider Initial Ultrasound Date Last Menstrual Period Date Ultra Sound Weeks Gestation 0 Eighteen To Twenty Week Sahil Update Ultra Sound Date Fundal Height At Umbil Quickening Date Ultra Sound Latest Weeks Gestation Final Sahil Confirmed By Final Ashil Confirmed Date Final Sahil Date Ultra Sound Latest Days Gestation 0 0 Menstrual History Last Menstrual Date Menses Monthly On Bcp Conception Prior Menses Frequency Hcg Plus Date Menarche Onset Age Delivery Information Delivery Date Delivery Type Labor Anesthesia Weeks Gestation Incision Type Labor Labor Length Hrs Delivered By Post Complications Tubal Sterilization Discharge Date Comments 0 40 Discharge Information Feeding Method Contraceptive Method Maternal HG B and HCT Levels Ob Episode Information Episode Created Date Number of Fetuses Patient Bloodtype Patient rh Status Prepregnancy Weight lbs Domestic Partner Domestic Partner Phone Father Name Presales Senior Specialist Status 04/17/20 15 1 O Positive 136 CLOSED Fetus Data First Name Last Name Admitted to NICU Weight (g) Sex Living Outcome Pediatric Complications Fetus ID Race Codes Race Delivery Type [id number] Problems Problem Notes Problem Name Start Date End Date Resolution Snomed Code Not e Missed miscarriage [id number] Sahil Calculation Initial Sahil Date Initial Exam Date Initial Exam Provider Initial Ultrasound Date Last Menstrual Period Date Ultra Sound Weeks Gestation 11/04/2015 04/17/2015 [email or web address] 01/28/2015 0 Eighteen To Twenty Week Sahil Update Ultra Sound Date Fundal Height At Umbil Quickening Date Ultra Sound Latest Weeks Gestation Final Sahil Confirmed By Final Sahil Confirmed Date Final Sahil Date Ultra Sound Latest Days Gestation 0 11/04/19 16 0 Pre-gwyn Flowsheet Flowsheet Date 04/17/2015 Valentine Score Blood Edema Fundus Height Fundus Units Glucose Ketones Leukocytes Nitrite Labor Signs Protein Cervic Dilation Cervic Effacement Cervic Station none 10 wks none Type Weight in lbs Pre/Post Dialysis Refused [id number] BP Diastolic BP Location Tested BP Systolic BP Type 70 130 sitting Fetus Heart Rate Present A Absent Fetus Movement Comments u/s ordered pn labs and PNV ERx for one year/ rto in 2 wks / diet counseling in reviewed Flowsheet Date 05/01/2015 Valentine Score Blood Edema Fundus Height Fundus Units Glucose Ketones Leukocytes Nitrite Labor Signs Protein Cervic Dilation Cervic Effacement Cervic Station neg 7 wks none negative Backpain neg Type Weight in lbs Pre/Post Dialysis Refused [id number] BP Diastolic BP Location Tested BP Systolic BP Type 60 110 sitting Fetus Heart Rate Present A Absent Fetus Movement Comments rep u/s --no pole seen / small yolk sac Flowsheet Date 05/22/2015 Valetnine Score Blood Edema Fundus Height Fundus Units Glucose Ketones Leukocytes Nitrite Labor Signs Protein Cervic Dilation Cervic Effacement Cervic Station none Type Weight in lbs Pre/Post Dialysis Refused [id number] BP Diastolic BP Location Tested BP Systolic BP Type 62 110 sitting Fetus Heart Rate Present Fetus Movement Comments Pt and in office aft er having u/s this afternoon revealing no pole or any motion will check B HCG titer today Monday at 4:30 pm and in monday am. To assess level and if ascending titer or not. If starting to bleed to go to ER Flowsheet Date 05/25/2015 Valentine Score Blood Edema Fundus Height Fundus Units Glucose Ketones Leukocytes Nitrite Labor Signs Protein Cervic Dilation Cervic Effacement Cervic Station Type Weight in lbs Pre/Post Dialysis Refused BP Diastolic BP Location Tested BP Systolic BP Type Fetus Heart Rate Present Fetus Movement Comments Flowsheet Date 05/28/2015 Valentine Score Blood Edema Fundus Height Fundus Units Glucose Ketones Leukocytes Nitrite Labor Signs Protein Cervic Dilation Cervic Effacement Cervic Station none Type Weight in lbs Pre/Post Dialysis Refused [id number] BP Diastolic BP Location Tested BP Systolic BP Type 68 102 sitting Fetus Heart Rate Present Fetus Movement Comments Discussed nature of her cond ition of missed ab as well as r=the findings on U/S to be suggestive bit not diagnostic of poss molar , . Pt voices understanding the nature of proposed provedure its RB&A and agrees to proceed.Had all questions answered top her satisfaction. She has been scheduled to have this procedure done nish tomorrow am. She is aware that she will require further f/u Menstrual History Last Menstrual Date Menses Monthly On Bcp Conception Prior Menses Frequency Hcg Plus Date Menarche Onset Age 0501/28/2015 true Genetic Screening And Infection History Question Response Note Patient's Age Will Be 35 Years Or Older At Estim ated Date of Delivery false Delivery Information Delivery Date Delivery Type Labor Anesthesia Weeks Gestation Incision Type Labor Labor Length Hrs Delivered By Post Complications Tubal Sterilization Discharge Date Comments 6 37.3 hydatidifo rm mole Discharge Information Feeding Method Contraceptive Method Maternal HG B and HCT Levels
--- OUTSIDE RECORDS SUMMARY | 2024-11-17 20:17 | XMS_ITS | Data Portability ---
Author Organization 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 Patient will come back in a year unless there are new symptoms. Not available 08/09/2021 17:21:08 10/24/2022 10/24/2022 Annual gynecological exam performed. Patient will come back in a year unless there are new symptoms. Not available 10/24/2022 17:50:35 12/18/2023 12/18/2023 Annual gynecological exam performed. Patient will come back in a year unless there are new symptoms. Not available 12/18/2023 17:30:29 Plan of Treatment Reminders Order Date Submit Date Provider Last Modified By Organization Details Last Modified Time Details Appointments U/S OB SNEAK PEAK 2024 01:00P M ULTRASOUND Not available Not available Not available OB SCREEN 2024 01:30P M UMER MUNIZ MD Not available Not available Not available Lab None recorde d. Referral None recorde d. Procedures None recorde d. Surgeries None recorde d. Imaging None recorde d. Medication Orders None recorde d. Patient TargetsNo targets recorded. Patient InstructionsNo instructions recorded. Reason for Referral None Reported. Results Created Date Observation Date Name Description Value Unit Range Abnormal Flag Note LastModifiedBy Organization Detail LastModifiedTime 08/09/20 21 08/09/2021 IMAGE GUIDE D PAP AND HPV REGAR DLESS image guided Pap, HPV regardless of Pap result SEE RESULT S BELOW CASE REPOR T: Cytol ogy Gynec ologi orquidea Repor t Case: [id number] Autho leonelaraymondhoney osman Provi clotilde: Klarissa Garcia MD Colle cted: 08/09 1718 Order ing Locat ion: [place] [facility] Recei meenu: 08/10 0040 First Scree n: Priti cabrales, Agustina , [place] Rescr een: Kiera Mitchell , [place] Speci men: Reina garnerg Pap - Image d, Cervi x STATE MENT OF ADEQU ACY: Satis facto ry for evalu ation Trans forma tion zone compo nent prese nt FINAL DIAGN OSIS: Negat nessa for Intra epith elial Lesrajendra n or Melchor quezada (NIL) . Elect donna rome d by Kiera Mitchell , [place] on 2020 at 4:39 PM ----- ----- ----- ----- ----- ----- ----- ----- ----- ----- ----- ----- ----- ----- ----- ----- ----- ---- HPV RESUL TS: HPV mRNA E6/E7 : No HPV mRNA Detec terry NOTE: This high risk HPV mRNA assay detec ts fourt een high- risk HPV types (16, 18, 31, 33, 35, 39, 45, 51, 52, 56, 58, 59, 66, 68) witho ut diffe renti ation . COMME NT: Note: This speci men was revie wed by a Cytot echno logis t and/o r Patho logis t (as indic ated in this repor t) after evalu ation using the Thinp rep Imagi ng Syste m. CLINI ORQUIDEA INFOR MATIO N: Menst rual Statu s: LMP (if appli cable ): Clini orqiudea Histo ry/Pr eviou s Pap: Type of Neopl sherman (if appli cable ): Signi fican t Clini orquidea Findi ngs: Other Histo ry: Hormo hill (if appli cable ): PAP EDUCA JAIMEE L NOTE: The Pap Test is a scree angel test with an inher ent false negat nessa rate. Liqui d-bas e sampl ing may decre ase, but will not elimi rodolfo, false negat nessa resul ts. A negat nessa resul t does not precl ude the prese nce and/o r devel opmen t of disea se, since the prese nce of abnor mal cells in the sampl e depen ds on the locat ion of the lesio n and sampl ing techn ique. Fide nued regul ar scree angel is the best metho d of cance r preve ntion . If repor terry cytol ogic findi ng do not corre late with physi orquidea and/o r histo rical findi ngs, furth er inves tigat ion is recom mariah d, as clini froylan warra nted. Not Available [facility] (Lab) [address], [place], [address], 08/16/2021 17:41:46 10/24/19 23 10/24/2022 IMAGE GUIDE D PAP AND HPV REGAR DLESS image guided Pap, HPV regardless of Pap result SEE RESULT S BELOW CASE REPOR T: Cytol ogy Gynec ologi orquidea Repor t Case: [id number] Autho rizin g Provi clotilde: Klarissa Garcia MD Colle cted: 10/24 1725 Order ing Locat ion: [place] [facility] [place] Recei meenu: 10/25 0224 First Scree n: Brandon Butler, CT Speci men: Scree angel Pap - Image d, Cervi x STATE MENT OF ADEQU ACY: Satis facto ry for evalu ation Trans forma tion zone compo nent prese nt FINAL DIAGN OSIS: Negat nessa for Intra epith elial Lesio n or Malig damien (NIL) . Yang joseph latricia d by Brandon Butler, CT on 2022 at 8:07 AM ----- ----- ----- ----- ----- ----- ----- ----- ----- ----- ----- ----- ----- ----- ----- ----- ----- ---- HPV RESUL TS: HPV mRNA E6/E7 : No HPV mRNA Detec terry NOTE: This high risk HPV mRNA assay detec ts fourt een high- risk HPV types (16, 18, 31, 33, 35, 39, 45, 51, 52, 56, 58, 59, 66, 68) witho ut diffe renti ation . COMME NT: Note: This speci men was revie wed by a Cytot echno logis t and/o r Patho logis t (as indic ated in this repor t) after evalu ation using the Thinp rep Imagi ng Syste m. CLINI ORQUIDEA INFOR MATIO N: Menst rual Statu s: LMP (if appli cable ): Clini orquidea Histo ry/Pr eviou s Pap: Type of Neopl sherman (if appli cable ): Signi fican t Clini orquidea Findi ngs: Other Histo ry: Hormo hill (if appli cable ): PAP EDUCA JAIMEE L NOTE: The Pap Test is a scree angel test with an inher ent false negat nessa rate. Liqui d-bas ed sampl ing may decre ase, but will not elimi rodolfo, false negat nessa resul ts. A negat nessa resul t does not precl ude the prese nce and/o r devel opmen t of disea se, since the prese nce of abnor mal cells in the sampl e depen ds on the locat ion of the lesio n and sampl ing techn ique. Fide nued regul ar scree angel is the best metho d of cance r preve ntion . If repor terry cytol ogic findi ng do not corre late with physi orquidea and/o r histo rical findi ngs, fur er inves tigat ion is recom mariah d, as clini froylan jarrell nted. Not Available [facility] (Lab) [address], [place], [address], 10/27/2022 09:10:36 12/18/19 24 12/18/2023 IMAGE GUIDE D PAP AND HPV REGAR DLESS image guided Pap, HPV regardless of Pap result SEE RESULT S BELOW CASE REPOR T: Cytol ogy Gynec ologi orquidea Repor t Case: [id number] Autho jack osman Provi clotilde: Klarissa Garcia MD Colle cted: 12/17 1705 Order ing Locat ion: [place] [facility] [place] Recei meenu: 12/18 0727 First Scree n: Shayy Lundberg, CT Speci men: Reina ortiz Pap - Image d, Cervi x STATE MENT OF ADEQU ACY: Satis facto ry for evalu ation Trans forma tion zone compo nent prese nt FINAL DIAGN OSIS: Negat nessa for Intra epith elial Lesrajendra méndez or Melchor quezada (NIL) . Elect donna joseph latricia d by Shayy Lundberg, CT on 2023 at 12:04 PM ----- ----- ----- ----- ----- ----- ----- ----- ----- ----- ----- ----- ----- ----- ----- ----- ----- ---- HPV RESUL TS: HPV mRNA E6/E7 : No HPV mRNA Detec terry NOTE: This high risk HPV mRNA assay detec ts fourt een high- risk HPV types (16, 18, 31, 33, 35, 39, 45, 51, 52, 56, 58, 59, 66, 68) witho ut diffe renti ation . COMME NT: This speci men was revie wed by a Cytot echno logis t and/o r Patho logis t (as indic ated in this repor t) after evalu ation using the Thinp rep Imagi ng Syste m. CLINI ORQUIDEA INFOR MATIO N: Menst rual Statu s: LMP (if appli cable ): Clini orquidea Histo ry/Pr eviou s Pap: Type of Neopl sherman (if appli cable ): Signi fican t Clini orquidea Findi ngs: Other Histo ry: [place]o hill (if appli cable ): PAP EDUCA JAIMEE L NOTE: The Pap Test is a scree angel test with an inher ent false negat nessa rate. Liqui d-bas ed sampl ing may decre ase, but will not elimi rodolfo, false negat nessa resul ts. A negat nessa resul t does not precl ude the prese nce and/o r devel opmen t of disea se, since the prese nce of abnor mal cells in the sampl e depen ds on the locat ion of the lesio n and sampl ing techn ique. Fide nued regul ar scree angel is the best metho d of cance r preve ntion . If repor terry cytol ogic findi ng do not corre late with physi orquidea and/o r histo rical findi ngs, furth er inves tigat ion is recom mariah d, as clini froylan warra nted. Not Available [facility] (Lab) [address], [place], [address], 12/20/2023 13:07:27 Result Notes None recorded. Problems Name Problem SNOMED Code Status Onset Date Resolution Date Notes Provider Name and Address Organization Details Recorded Time SNOMED CT Concept Completed 201808/09/2021 Encntr for ob gyn exam (general ) (routine ) w/o abn findings ;Recorde d Elsewher e: No Locat ion: [facility] S ource: EHR Export Sales Manager luís: Honey Smith ce ID: [id number] Bandar lable Time: 04:45:00 PM Alexia collins [facility] 17:22:56 Amenorrh ea [id number] Completed 201808/09/2021 Amenorrh ea;Recor ded Elsewher e: No Locat ion[facility] S ource: EHR Export Sales Manager luís: Honey Smith ce ID: 0001 Bandar lable Time: 01:00:00 PM Alexia collins [facility] 17:21:55 Finding of pattern of menstrua l cycle [id number] Completed 201808/09/2021 Irregula r interval s between menstrua l bleeding ;Recorde d Edelmiraher e: No Locat ion: Mone machado [facility] S ource: EHR Export Sales Manager luís: N Practi ce ID: 0001 Bandar lable Time: 05:45:00 PM Alexia collins [facility] 17:22:30 Gestatio n period, 29 weeks [id number] Completed 201908/09/2021 29 weeks gestatio n of pregnanc y;Practi ce ID: 0001 Alexia collins [facility] 17:22:33 Normal pregnanc y in multigra monica [id number] 4106 Completed 201908/09/2021 Encounte r for suprvsn of normal pregnanc y, third trimeste r;Practi ce ID: 0001 Alexia collins [facility] 17:22:43 Lacerati on of female perineum Completed 201908/09/2021 Second degree perineal lacerati on during delivery ;Practic e ID: 0001 Alexia collins [facility] 17:22:38 Single live [id number] Completed 201908/09/2021 Single live ;Pr actice ID: 0001 Alexia collins [facility] 17:22:53 Gestatio n period, 40 weeks [id number] Completed 201908/09/2021 40 weeks gestatio n of pregnanc y;Practi ce ID: 0001 Alexia collins [facility] 17:22:35 Antenata l screenin g Completed 201808/09/2021 Encounte r for antenata l screenin g for nuchal transluc ency;Rec orded Elsewher e: No Locat ion: [facility] S ource: EHR Export Sales Manager luís: N Joelti ce ID: 0001 Bandar lable Time: 02:45:00 PM Alexia collins [facility] 17:22:24 Pregnanc y detectio n examinat ion Completed 201808/09/2021 Encounte r for pregnanc y test, result positive ;Recorde d Elsewher e: No Locat ion: [facility] S ource: EHR Export Sales Manager luís: N Joelti ce ID: 0001 Bandar lable Time: 04:45:00 PM Alexia Angulo [facility], [facility] 17:22:45 Pregnanc y test negative [id number] Completed 201808/09/2021 Encounte r for pregnanc y test, result negative ;Recorde d Elsewher e: No Locat ion: [facility] S ource: EHR Export Sales Manager luís: N Joelti ce ID: 0001 Bandar lable Time: 04:00:00 PM Alexia Angulo [facility] 17:22:[address] Concept Completed 201808/09/2021 Maternal care for oth abnormal ity and damage, unsp;Rec orded Elsewher e: No Locat ion: [facility] S ource: EHR Export Sales Manager luís: N Joelti ce ID: 0001 Bandar lable Time: 01:45:00 PM Alexiadedrick Angulo [facility] 17:22:55 Antenata l screenin g for malforma tion Completed 201808/09/2021 Encounte r for antenata l screenin g for malforma tions;Re corded Elsewher e: No Locat ion: Mone machado [facility] S ource: EHR Export Sales Manager luís: N Joelti ce ID: 0001 Bandar lable Time: 02:15:00 PM Alexia Adele null, [facility] 17:22:27 Malforma tion of central nervous system of fetus [id number] 07 Completed 201908/09/2021 Maternal care for (suspect ed) cnsl malform in fetus, unsp;Rec orded Elsewher e: No Locat ion: [facility] S ource: EHR Export Sales Manager luís: N Practi ce ID: 0001 Bandar lable Time: 09:30:00 AM Alexia collins [facility] 17:22:40 Gestatio n period, 23 weeks [id number] Completed 201808/09/2021 23 weeks gestatio n of pregnanc y;Record ed Elsewher e: No Locat ion: [facility] S ource: EHR Export Sales Manager luís: N Practi ce ID: 0001 Bandar lable Time: 01:45:00 PM Alexia collins [facility] 17:22:31 Secondar y amenorrh ea [id number] Completed 201808/09/2021 Secondar y amenorrh ea;Joelt ice ID: 0001 Alexia Angulo [facility] 17:22:51 Problem Notes None recorded. Procedures Surgical History Date Name Laterality Status Provider Name and Address Organization Details Recorded Time 0 EXCISION OF LESIONS (SURG) completed Ramon Saha [facility] 01/27/2021 10:33:53 0 Date of Last Pap Smear completed Alexia [facility] 08/09/2021 17:23:04 Imaging Results None recorded. Procedure Notes None recorded. Medical Equipment None Reported. Allergies No known drug allergies Medications Name Sig Start Date Stop Date Status Note LastModified by Organization Details LastModified Time hydrocort isone-pra moxine 2.5 %-1 % rectal cream INSERT 1 CREAM RECTALLY THREE TIMES DAILY 04/13 completed Not Available Not Available Not Available hydrocodo ne 5 mg-acetam inophen 325 mg tablet 08/09 completed Not Available Not Available Not Available Reglan 10 mg tablet take 1 tablet by oral route 4 times every day 30 minutes before meals and at bedtime 08/09 completed Prescrib ed Elsewher e: No Locat ion: [facility] odify By: mercedes davison DateTime : 04/24/20 04:45:00 PM Not Available Not Available Not Available DOK 100 mg capsule 04/13 completed Not Available Not Available Not Available Analpram- HC 1 %-1 % rectal cream apply topicall y to rectal area as directed active Not Available Not Available No t Available Provera 10 mg tablet take 1 tablet by oral route every night x10 04/24 completed Prescrib ed Elsewher e: No Locat ion: [facility] odify By: suellen Chilel ter DateTime : 12/15/19 01:00:00 PM Not Available Not Available Not Available Anusol-HC 25 mg rectal supposito ry Insert 1 supposit ory twice a day by rectal route for 14 days. 04/13 completed Not Available Not Available Not Available Boostrix Tdap 2.5 Lf unit-8 mcg-5 Lf/0.5 mL intramusc ular syringe 03/23 completed Not Available Not Available Not Available Narcan 4 mg/actuat ion nasal spray 08/09 completed Not Available Not Available Not Available 28 mg-800 mcg tablet 08/09 completed Prescrib ed Elsewher e: Yes Loca tion: [facility] odify By: [email or web address] Encount er DateTime : 09/16/19 09:15:00 AM Not Available Not Available Not Available Vitals Date Recorded Body height Body mass index (BMI) Body weight Systolic blood pressure Diastolic blood pressure Provider Name and Address Organization Details Last Updated DateTime 08/09/2021 158.75 cm 25.7 kg/m2 49690.71 g 124 mm[Hg] 76 mm[Hg] Alexia Angulo [facility] 11/29/202 1 17:21:37 Date Recorded Body height Body mass index (BMI) Body weight Systolic blood pressure Diastolic blood pressure Provider Name and Address Organization Details Last Updated DateTime 10/24/2022 158.75 cm 28.6 kg/m2 12871.19 g 120 mm[Hg] 76 mm[Hg] Alexia Angulo [facility] 3 18:00:56 Date Recorded Body height Body mass index (BMI) Body weight Systolic blood pressure Diastolic blood pressure Provider Name and Address Organization Details Last Updated DateTime 05/20/2020 158.75 cm 29.9 kg/m2 19287.33 g 134 mm[Hg] 77 mm[Hg] Alexia [facility] 0 18:19:55 Date Recorded Body height Body mass index (BMI) Body weight Systolic blood pressure Diastolic blood pressure Provider Name and Address Organization Details Last Updated DateTime 12/18/2023 158.75 cm 28.8 kg/m2 84093.78 g 121 mm[Hg] 78 mm[Hg] Kayleen Garcia [facility] 4 17:31:04 Date Recorded Body height Body mass index (BMI) Body weight Systolic blood pressure Diastolic blood pressure Provider Name and Address Organization Details Last Updated DateTime 06/30/2020 158.75 cm 29.5 kg/m2 20093.15 g 129 mm[Hg] 76 mm[Hg] Alexia [facility] 0 16:33:50 Social History Question Answer Notes LastModified by Organizat ion Details LastModified Time Tobacco Smoking Status Never Smoker Alexia Angulo [facility] 10/24/2022 17:51:08 What Is Your Level Of Alcohol Consumption? Occasional Information not available 10/24/2022 Are You Blind Or Do You Have Difficulty Seeing? No Information n ot available 10/24/2022 What Is Your Level Of Caffeine Consumption? Moderate Information not available 10/24/2022 How Much Tobacco Do You Chew? None Information not available 10/24/2022 In The 14 Days Before Symptom Onset, Have You Had Close Contact With A Laboratory-confirm ed COVID-19 While That Case Was Ill? No Information n ot available 10/24/2022 In The 14 Days Before Symptom Onset, Have You Had Close Contact With A Person Who Is Under Investigation For COVID-19 While That Person Was Ill? No Information not available 10/24/2022 Have You Been To An Area Known To Be High Risk For COVID-19? No Information not available 10/24/2022 Are You Deaf Or Do You Have Serious Difficulty Hearing? No Information not available 10/24/2022 What Type Of Diet Are You Following? REGULAR Information n ot available 10/24/2022 What Is The Highest Grade Or Level Of School You Have Completed Or The Highest Degree You Have Received? 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 No Information not available 10/24/2022 Have You Ever Been Counseled For Unhealthy Alcohol Use? No Information not available 12/18/2023 Do You Use Protection During Sex? Usually Information not available 10/24/2022 Do You Use Your Seat Belt Or Car Seat Routinely? Yes Information not available 10/24/2022 Do You Have Smoke And Carbon Monoxide Detectors In Your Home? No Information not available 10/24/2022 How Much Tobacco Do You Smoke? No Information not available 10/24/2022 Do You Feel Stressed (tense, Restless, Nervous, Or Anxious, Or Unable To Sleep At Night)? [id number] Information not available 10/24/2022 Do You Use Any Illicit Or Recreational Drugs? No Information not available 10/24/2022 Do You Use Sunscreen Routinely? Yes Information not available 10/24/2022 Has Tobacco Cessation Counseling Been Provided? No [email or web address] Information not available 12/18/2023 Have You Used IV Drugs? No Information not available 10/24/2022 Do You Or Have You Ever Used Any Other Forms Of Tobacco Or Nicotine? No [email or web address] Information not available 12/18/2023 Sex: Unknown Functional Status Question Answer Note LastModified by Organizat ion Details LastModified Time Do you have difficulty walking or climbing stairs? No [email or web address] Information not available 12/18/2023 Are you able to walk? YESWOREST Information not available 10/24/2022 Are you able to care for yourself? Yes [email or web address] Information not available 12/18/2023 Do you have difficulty dressing or bathing? No [email or web address] Information not available 12/18/2023 What is your exercise level? Moderate Information not available 10/24/2022 Mental Status None recorded. Family History Relationship Description Onset Age of this Age Resolved Age Notes LastModified by Organization Details LastModified Time Mother Hypertensive disorder [email or web address] Not available 2019 16:45:37 Mother Kidney disease [email or web address] Not available 12/17 17:32:21 Mother Kidney stone [email or web address] Not kerline ilable 12/18/2023 17:32:38 Father Hypercholest erolemia [email or web address] Not available 2019 16:45:49 Father Hypertensive disorder [email or web address] Not available 2019 16:45:59 Sister Cyst of ovary Not available 2023 17:15:25 Sister Tuberculosis [email or web address] Not avai lable 12/18/2023 17:15:26 Sister Hypertensive disorder [email or web address] Not available 12/17 17:32:03 Maternal Grandmother Malignant tumor of colon Not available 2020 17:24:39 Medical History Condition Response Allergies (Food, seasonal, environmental ) N Other N Breast Cancer N Drug/Latex Allergies/Reactions N Blood Transfusion N Dermatologic Disorders N Lung Disease N Defects or Inherited Disease N Breast Problem N Gestational Diabetes N Hematologic disorders N Anesthesia Complications N History of STI Y Deep Vein Thrombosis N Polycystic ovary syndrome N Anxiety Disorder N Autoimmune disease N Arthritis N Infertility N Polyps N Acid Reflux (GERD) N History of abnormal pap Y Cancer N Stroke N Varicosities N Neurologic/Epilepsy N Endometriosis N High Cholesterol N Headaches N Fibromyalgia N Kidney Disease N Heart Problems N Kidney or Bladder Problems N Thyroid Problems N GI Problems Y Eating Disorder N Anemia N Art (IVF or FET) N Psychiatric Illness N Ovarian Cancer N Diabetes N Pulmonary (TB, Asthma) N Hepatitis/Liver Disease N No Past Medical History N Eczema N Urinary Tract Infection N Abuse/Domestic Violence N Asthma N Trauma/Violence N Depression/ depression N Heart Disease N Pre-Eclampsia N Hypertension N Osteoporosis N Thrombophilias N Gynecological History Statement/Question Response Abnormal Pap Y Date of Last Mammogram Date of LMP 11/27/2023 On BCP's at Conception? N N Was last menstrual period normal Y STIs/STDs Y HPV Vaccine N Duration of Flow (days) 6 Current Control Method Condoms Age at First Child 34 Frequency of Cycle (Q days) 29 Sexually Active? Y Condoms Date of DEXA bone scan Age of first menstrual cycle 13 Date of Last Pap Smear 04/13/2020 Desired Control Method None LMP Approximate N Obstetrics History GPAL:G 2 P 1 0 1 1 Type Value Full Term 1 Spontaneous 1 Living 1 Total 2 Past Encounters Encounter ID Performer Location Encounter Start Date Encounter Closed Date Diagnosis/Indication Diagnosis SNOMED-CT Code Diagnosis ICD10 Code Diagnosis Note [id number] Feng Garcia MD [facility] [address] [address] 12/31/2019 16:18:53 12/31/2019 17:17:48 Hemorrhoids 73946148 K64.9 state 8116058 1 Z39.2 this patient is a 31-year-ol d female who presents for care. She is recovering normally from a vaginal . We are going to place a Mirena IUD in 2 weeks. Will follow-up at that time [id number] Feng Garcia MD [facility] [address] [address] 02/10/2020 14:56:10 02/19/2020 12:42:55 Vulval pain [id number] R10.2 This patient is a 34-year-ol d female with painful hemorrhoid s and a poorly healing episiotomy . There is a defect in the scan at the introitus posteriorl y. It is 4 mm in length. We agreed to that her heel for 6 more weeks. She is going to apply Estrace cream to the area before bed every night for 6 weeks. She will return in 6 weeks to examine and discuss her symptoms we spent 15 minutes face-to-fa ce. [id number] Feng Garcia MD [facility] [address],[place] [address] 03/23/2020 15:10:27 03/23/2020 15:40:08 Disruption of episiotomy wound in the puerperium [id number] O90.1 This patient is a 34-year-ol d female who presents for follow-up onconcerns over episiotomy healing. She had noticed a defect in the episiotomy .I recommende d that we observe. She returns today after period of observatio n. She has no problems. She had pain previously . She has no pain at this time.There is no bleedingas well. She is breast-fee ding and hasnot had a period yet. She stopped breast-fee ding about 2 months ago.I recommende d to her that if shedid not have a period in the next 2 months that she should return. The vagina was examined. In the area of the episiotomy it waswell-he aled. There was no defect however there was about a3 cm strip of granulatio n tissue at the site of the episiotomy repair. She has no pain or any bleeding. I recommende d that we observe this. We agreed to a period of observatio n and to follow-up in 6 months. [id number] MD Mike Givens [address],[facility] [place] [address] 04/13/2020 12:23:39 04/13/2020 13:17:14 Gynecologic examination [id number] Z01.419 This patient is here for her annual exam. A thorough history was taken. A physical exam was performed. Age appropriat e routine health screening was ordered, performed, and discussed. Recommende d testing was ordered. She was asked to follow up in one year. She will be informed of any test results. Patient has prominent growth of granulatio n tissue at the episiotomy site. She needs it resected. Vaginal lesion [id number] N94.89 [id number] Feng Garcia MD [facility] [address] [address] 05/14/2020 10:06:57 05/14/2020 10:08:25 [id number] Feng Garcia MD [facility] [address],[place] [address] 05/20/2020 18:10:34 05/21/2020 12:10:14 Postoperative care [id number] Z48.89 this patient is a 35-year-ol d female who presents forpostopf ollow-up. She had a resection of ulcer of the posterior fourchette of the vagina/vul va. She is recovering well. She states that she is comfortabl e. The vulva was examined. There is good healing at the area of the resection. She will follow up in 5 weeks. She is instructed not to have intercours e until she is examined again. [id number] Feng Garcia MD [facility] [address],[place] [address] 06/30/2020 16:26:27 06/30/2020 16:55:52 Lesion of vulva [id number] N90.89 this patient is a 35-year-ol d female presents for follow-up [place] my concerns.S he had some granulatio n tissue at the posterior fornixprox imately extending into the vagina. It was resected and found to be an ulcer in granulatio n tissue. She used vaginal estrogen cream or during the recovery process. She has no symptoms at this time. It was examined. There is normal vaginal mucosa in the area. It appears well healed. There is a small band of skin at the outer introitus. This will likely be okay but may be a concern during intercours e. She will contact us if there is bleeding or pain with intercours e. [id number] Feng Garcia MD [facility] [address] [address] 08/09/2021 17:08:10 08/09/2021 18:09:13 Gynecologic examination [id number] Z01.419 This patient is here for her annual exam. A thorough history was taken. A physical exam was performed. Age appropriat e routine health screening was ordered, performed, and discussed. Recommende d testing was ordered. She was asked to follow up in one year. She will be informed of any test results. [id number] Feng Garcia MD [facility] [address] [address] 10/24/2022 17:24:36 10/25/2022 11:11:52 Gynecologic examination [id number] Z01.419 Z11.51 This patient is here for her annual exam. A thorough history was taken. A physical exam was performed. Age appropriat e routine health screening was ordered, performed, and discussed. Recommende d testing was ordered. She was asked to follow up in one year. She will be informed of any test results. [id number] Feng Garcia MD [facility] [address] [address] 12/18/2023 17:15:10 12/18/2023 17:55:09 Gynecologic examination [id number] Z01.419 Z11.51 This patient is here for her annual exam. A thorough history was taken. A physical exam was performed. Age appropriat e routine health screening was ordered, performed, and discussed. Recommende d testing was ordered. She was asked to follow up in one year. She will be informed of any test results. Health Concerns Section Related Observation LastModified by Organization Detai ls LastModified Time None Recorded Concern Status LastModified by Organization Details LastModified Time None Recorded Advance Directives Directive None Recorded Payers Encounter Date Sequence Insurance Name Policy Number Policy Silva Covered Member ID Silva Member ID Guarantor Name 05/20/2020 1 [facility] PRIOR TO 03/11/2021 (MEDICAID REPLACEMENT - HMO) Pily Staley [id number] Pily Staley 06/30/2020 1 [facility] PRIOR TO 03/11/2021 (MEDICAID REPLACEMENT - HMO) Pily Staley [id number] Pily Staley 08/09/2021 1 [facility] ON OR AFTER 03/11/21 (MEDICAID REPLACEMENT - HMO) Pily Staley [id number] Pily Staley 10/24/2022 1 [facility] ON OR AFTER 03/11/21 (MEDICAID REPLACEMENT - HMO) Pily Staley [id number] Pily Luís 12/18/2023 1 [facility] - DOS ON OR AFTER 21 (MEDICAID REPLACEMENT - HMO) Pily Staley [id number] Pily Staley Notes Date Note Type Note Provider Name and Address Organization Details Recorded Time 05/20/2020 text/html this patient is a 35-year-old female who presents for postop follow-up. She had a resection of ulcer of the posterior fourchette of the vagina/vulva. She is recovering well. She states that she is comfortable. The vulva was examined. There is good healing at the area of the resection. She will follow up in 5 weeks. She is instructed not to have intercourse until she is examined again. Feng Garcia MD [address], [place], [address], [facility] 05/20/2020 23:48:57 06/30/2020 text/html this patient is a 35-year-old female presents for follow-up on episiotomy concerns. She had some granulation tissue at the posterior fornix proximately extending into the vagina. It was resected and found to be an ulcer in granulation tissue. She used vaginal estrogen cream or during the recovery process. She has no symptoms at this time. It was examined. There is normal vaginal mucosa in the area. It appears well healed. There is a small band of skin at the outer introitus. This will likely be okay but may be a concern during intercourse. She will contact us if there is bleeding or pain with intercourse. Feng Garcia MD [address], [place], [address], [facility] 06/30/2020 16:47:48 08/09/2021 text/html Annual GYNReport ed bypatient.History: no gynecologic complaints Menstrual cycle:Normal menses Urinary symptoms:No hematuria; No incontinence Vulva:No genital lesion Vagina:Normal vaginal discharge Breast:No breast pain; No breast lump; No nipple discharge Current Contraception:Sati sfied with current contraception; Condoms Sexual complaints:No sexual complaints Psychological symptoms:No depression; No anxiety Preventive measures:Encourage self breast examination; Encourage regular exercise Feng Garcia MD [address], [place], [address], [facility] 08/09/2021 17:48:36 10/24/2022 text/html Annual GYNReport ed bypatient.History: no gynecologic complaints Menstrual cycle:Normal menses Urinary symptoms:No hematuria Vulva:No genital lesion Vagina:Normal vaginal discharge Breast:No breast pain; No breast lump Current Contraception:Cond oms Sexual complaints:No sexual complaints; No pain during intercourse Psychological symptoms:No depression; No anxiety Preventive measures:Encourage self breast examination; Encourage regular exercise Feng Garcia MD [address], [place], [address], [facility] 10/24/2022 18:28:20 12/18/2023 text/html Annual GYNReport ed bypatient.History: no gynecologic complaints Menstrual cycle:Normal menses Urinary symptoms:No hematuria Vulva:No genital lesion Vagina:Normal vaginal discharge Breast:No breast pain Current Contraception:Sati sfied with current contraception; Condoms Sexual complaints:No sexual complaints; No pain during intercourse Menopausal Symptoms:No menopausal symptoms Psychological symptoms:No depression; No anxiety Preventive measures:Encourage self breast examination; Encourage regular exercise Feng Garcia MD [address], [place], [address], [facility] 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 Mill Operator Status 12/31/19 20 1 CLOSED Fetus Data First Name Last Name Admitted to NICU Weight (g) Sex Living Outcome Pediatric Complications Fetus ID Race Codes Race Delivery Type , Spontane ous 719 Sahil Calculation Initial Sahil Date Initial Exam [...] Post Complications Tubal Sterilization Discharge Date Comments 5 Discharge Information Feeding Method Contraceptive Method Maternal HG B and HCT Levels Ob Episode Information Episode Created Date Number of Fetuses Patient Bloodtype Patient rh Status Prepregnancy Weight lbs Domestic Partner Domestic Partner Phone Father Name Regrind Mill Operator Status 12/31/19 20 1 CLOSED Fetus Data First Name Last Name Admitted to NICU Weight (g) Sex Living Outcome Pediatric Complications Fetus ID Race Codes Race Delivery Type 3203.26 6704 M Full Term 720 Vaginal Delivery Sahil Calculation Initial Sahil Date Initial Exam Date Initial Exam Provider Initial Ultrasound Date Last Menstrual Period Date Ultra Sound Weeks Gestation 0 Eighteen To Twenty Week Sahil Update Ultra Sound Date Fundal Height At Umbil Quickening Date Ultra Sound Latest Weeks Gestation Final Sahil Confirmed By Final Sahil Confirmed Date Final Shail Date Ultra Sound Latest Days Gestation 0 0 Menstrual History Last Menstrual Date Menses Monthly On Bcp Conception Prior Menses Frequency Hcg Plus Date Menarche Onset Age Delivery Information Delivery Date Delivery Type Labor Anesthesia Weeks Gestation Incision Type Labor Labor Length Hrs Delivered By Post Complications Tubal Sterilization Discharge Date Comments 0 40.3 Discharge Information Feeding Method Contraceptive Method Maternal HG B and HCT Levels
--- OUTSIDE RECORDS SUMMARY | 2024-11-17 20:17 | XMS_ITS | Continuity of Care Document ---
Author Organization [facility] Address [address] [place] [address] Phone Care Team Providers Care Ripsaw Matcher Name Role Phone Nurse, Registered Unavailable Unavailable Procedures Procedure Date IMMUN ADMIN SARSCOV2 BVL 30MCG/.3ML YARELI TER SARSCOV2 VAC BVL 30MCG/0,3ML Advance Directives Directive Yes / No Effective Date File Name No Information Encounters Encounter Description Practice Location Reason(s) For Visit Diagnoses Date Provider Providers Copied on Encounter [facility] , [address], [place], [place], [id number], tel:[phone] COVID Mobile COVID (chief complaint) No Information Nurse Registered . [address], [place], [place], [address], . tel:[phone] Referring Provider: Neelam Dimaond, [address], [place], [address]. tel:[phone] Family History Family Member Type Diagnosis Age At Onset No Information Immunizations Vaccine Date Status Comments COVID-19 Pfizer 12+ Bivalent Booster administered Note: Pt tolerated w ell administered by Maria Esther Styles MA ; Source: New Immunization Record Payers Payer name Insurance type Covered green party ID Authoriza tion(s) No Information Social History Type Description Quantity Date Captured Comments Sex Female Smoking Status No Information Chief Complaint And Reason For Visit From encounter dated '06/23/2022 00:00'. COVID (chief complaint). Description: Booster COVID-19 Pfizer 12+ Bivalent Booster 300 [id number] Administered New 06/28/2022 06/23/2022 12:25 PM Xochilt Styles MA 0.3 [id number] 03/10/2023 [employer] Intramuscular Right Deltoid Pt tolerated well administered by EMILY Tolbert MA, Sharren Baynes MA, Sharren (06/28/2022) Reason For Referral Reason For Referral No Information History Of Present Illness Encounter Date Complaint History Of Prese nt Illness COVID Booster COVID-19 Pfizer 12+ Bivalent Booster 300 [id number] Administered New 06/28/2022 06/23/2022 12:25 PM Xochilt Styles MA 0.3 [id number] 03/10/2023 [employer] Intramuscular Right Deltoid Pt tolerated well administered by EMILY Tolbert MA, Sharren Baynes MA, Sharren (06/28/2022) Functional Status Date Functional Assessmen t No Information Instructions Date Instruction Additional Infor mation No Information Assessments Type Assessment Date No Information Patient Care Teams Name Effective Dates (start - stop) Status Members No Information
--- NOTE | 2024-11-17 21:38 | ED.FEMALEGU ---
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 Patient states that she noticed some spotting yesterday which progressed to bright red blood today. States she tested positive for multiple times at home with bedside test. A1. States that she has had some lower abdominal cramping but this has largely subsided. She states that she was trying to get with her partner and has not been taking any other medications other than her levothyroxine. Denies fevers, chills, lightheadedness, nausea, vomiting, syncope, back pain. <Tino Herring PA-C - Last Filed: 11/18/24 00:46> Related Data Allergies/Adverse reactions: Allergies Allergy/AdvReac Type Severity Reaction Status Date / Time No Known Allergies Allergy Verified 05/06/20 09:13 <Tino Herring PA-C - Last Filed: 11/18/24 00:46> Review of Systems Review of Systems: All systems as dictated in HPI <Tino Herring PA-C - Last Filed: 11/18/24 00:46> [facility] Past Medical History Medical History: Medical History (Updated 11/18/24 @ 00:44 by Tino Herring PA-C) Healthy adult <Tino Herring PA-C - Last Filed: 11/18/24 00:46> Family History Family History: Family History (Updated 11/11/19 @ 12:53 by Kiah Hook RN) Mother Hypertension Kidney infection Father Hypertension <Tino Herring PA-C - Last Filed: 11/18/24 00:46> Social History Social History: Social History Smoking status: Never smoker Second hand tobacco smoke exposure: No Alcohol intake: current Drinks per week: 1 Substance use: never Spiritual care concerns: No <Tino Herring PA-C - Last Filed: 11/18/24 00:46> Exam Narrative: GENERAL: Well-appearing, well-nourished, and in no acute distress. HEAD: Normocephalic, atraumatic. EYES: PERRLA and EOMI. ENT: Nares clear, no rhinorrhea or epistaxis. Mucous membranes moist. Oropharynx without tonsillar hypertrophy exudate or other lesions. NECK: Supple. No adenopathy or masses. CHEST: No respiratory distress. Clear to auscultation. No wheezes rales or rhonchi HEART: Regular rate and rhythm. No murmur heard. Normal peripheral pulses. ABDOMEN: Soft, nontender, nondistended, normal active bowel sounds. MSK: Normal range of motion. No edema. SKIN: Warm, dry, no rash. NEURO: Alert and oriented x4. No focal deficits. PSYCH: Normal mood and affect. <Tino Herring PA-C - Last Filed: 11/18/24 00:46> Course PARASITOLOGIST/PA Physician Supervision I agree with midlevel documentation; I performed the medical decision making component of this evaluation. <Cassi Snyder MD - Last Filed: 11/18/24 00:57> Vital Signs Vital signs: Vital Signs Temperature 97.7 F 11/17/24 20:16 Pulse Rate 81 11/17/24 20:16 Respiratory Rate 16 11/17/24 20:16 Blood Pressure 129/97 H 11/17/24 20:16 Pulse Oximetry 100 11/17/24 20:16 Oxygen Delivery Room Air 11/17/24 20:16 Temperature 97.7 F 11/17/24 20:16 Pulse Rate 81 11/17/24 20:16 Respiratory Rate 16 11/17/24 20:16 Blood Pressure 129/97 H 11/17/24 20:16 Pulse Oximetry 100 11/17/24 20:16 Oxygen Delivery Room Air 11/17/24 20:16 <Tino Herring PA-C - Last Filed: 11/18/24 00:46> Vital Signs Temperature 97.7 F 11/17/24 20:16 Pulse Rate 81 11/17/24 20:16 Respiratory Rate 16 11/17/24 20:16 Blood Pressure 129/97 H 11/17/24 20:16 Pulse Oximetry 100 11/17/24 20:16 Oxygen Delivery Room Air 11/17/24 20:16 Temperature 97.7 F 11/17/24 20:16 Pulse Rate 81 11/17/24 20:16 Respiratory Rate 16 11/17/24 20:16 Blood Pressure 129/97 H 11/17/24 20:16 Pulse Oximetry 100 11/17/24 20:16 Oxygen Delivery Room Air 11/17/24 20:16 <Cassi Snyder MD - Last Filed: 11/18/24 00:57> MDM - Female Genitourinary MDM Narrative Medical decision making narrative: This is a 39-year-old female who presents to the ED for chief complaint of vaginal bleed with recent positive test. A1. Vitals are normal. Exam is unremarkable. She has no abdominal tenderness. She is resting comfortably. Lab work shows a very low HCG at 38.68. CBC is unremarkable. CMP unremarkable as well. Obstetrical ultrasound: Stat rad impression: No intrauterine gestation identified. This is presumed related to very urgently gestational age status given the reported beta-hCG level at 38.68. Potential short-term minimal follow-up to confirm viable intrauterine gestation should be based on clinical criteria and serial beta hCG levels. On re-evaluation patient is resting comfortably. She has had no abdominal pain while in the ED. I discussed with her that this workup today could be revealing of a miscarriage, however results are inconclusive. She has established OB to follow up with for repeat evaluation, as she would be very early on in this . Patient will be discharged in stable condition. Supportive measures discussed and return precautions given. Patient is understanding and agreeable with plan for discharge with Ob follow-up. <Tino Herring PA-C - Last Filed: 11/18/24 00:46> Lab Data Result diagrams: 11/17/24 21:47 11/17/24 21:47 <Tino Herring PA-C - Last Filed: 11/18/24 00:46> Labs: Lab Results 11/17/24 Range/Units 21:47 WBC 8.0 (4.5-10.0) K/mm3 RBC 3.83 L (4.2-5.4) M/mm3 Hgb 12.4 (12.0-15.0) g/dL Hct 35.8 L (37.0-47.0) % MCV 93.5 (80-100) fl MCH 32.4 (26-34) pg MCHC 34.6 (32-36) g/dl RDW 12.5 (11.5-14.5) % Plt Count 221 (150-375) k/mm3 MPV 9.3 (7.4-10.4) fl Immature Gran % (Auto) 0.2 (0-0.5) % Neut % (Auto) 61.8 (45.5-73.1) % Lymph % (Auto) 29.6 (18.3-44.2) % Peach % (Auto) 7.3 (2.6-8.5) % Eos % (Auto) 0.5 (0-4.4) % Baso % (Auto) 0.6 (0.2-1.2) % Lymph # (Auto) 2.38 (0.9-3.2) K/mm3 Peach # (Auto) 0.6 (0.1-0.6) K/mm3 Eos # (Auto) 0.0 (0-0.3) K/mm3 Baso # (Auto) 0.1 (0.0-0.1) K/mm3 Abs Immat Gran (auto) 0.02 (0.00-0.031) K/mm3 Absolute Neuts (auto) 5.0 (1.3-6.7) K/mm3 Absolute Nucleated RBC 0.000 (0.0-0.012) K/mm3 Nucleated RBC % 0.0 (0.0-0.2) % Sodium 137 (137-145) mmol/L Potassium 3.9 (3.4-5.0) mmol/L Chloride 106 (98-107) mmol/L Carbon Dioxide 21 L (22-30) mmol/L Anion Gap 10 (4-12) mmol/L BUN 13 (7-17) mg/dL Creatinine 0.72 (0.7-1.0) mg/dL Estim Creat Clear Calc 87 ml/min Estimated GFR > 60 (59 - ) Glucose 100 (65-110) mg/dL Calcium 9.0 (8.4-10.2) mg/dL Total Bilirubin 0.7 (0.2-1.3) mg/dL AST 19 (14-36) U/L ALT 13 (6-35) U/L Alkaline Phosphatase 66 (38-126) U/L Total Protein 8.0 (6.3-8.2) g/dL Albumin 4.4 (3.5-5.1) g/dL Beta HCG, Quant 38.68 mIU/ML Blood Type O Positive Antibody Screen Negative Screen TNP Baby's Blood Type TNP Baby's TM TNP Doses of RhIg Required 0 <Tino Herring PA-C - Last Filed: 11/18/24 00:46> Lab Results 11/17/24 Range/Units 21:47 WBC 8.0 (4.5-10.0) K/mm3 RBC 3.83 L (4.2-5.4) M/mm3 Hgb 12.4 (12.0-15.0) g/dL Hct 35.8 L (37.0-47.0) % MCV 93.5 (80-100) fl MCH 32.4 (26-34) pg MCHC 34.6 (32-36) g/dl RDW 12.5 (11.5-14.5) % Plt Count 221 (150-375) k/mm3 MPV 9.3 (7.4-10.4) fl Immature Gran % (Auto) 0.2 (0-0.5) % Neut % (Auto) 61.8 (45.5-73.1) % Lymph % (Auto) 29.6 (18.3-44.2) % Peach % (Auto) 7.3 (2.6-8.5) % Eos % (Auto) 0.5 (0-4.4) % Baso % (Auto) 0.6 (0.2-1.2) % Lymph # (Auto) 2.38 (0.9-3.2) K/mm3 Peach # (Auto) 0.6 (0.1-0.6) K/mm3 Eos # (Auto) 0.0 (0-0.3) K/mm3 Baso # (Auto) 0.1 (0.0-0.1) K/mm3 Abs Immat Gran (auto) 0.02 (0.00-0.031) K/mm3 Absolute Neuts (auto) 5.0 (1.3-6.7) K/mm3 Absolute Nucleated RBC 0.000 (0.0-0.012) K/mm3 Nucleated RBC % 0.0 (0.0-0.2) % Sodium 137 (137-145) mmol/L Potassium 3.9 (3.4-5.0) mmol/L Chloride 106 (98-107) mmol/L Carbon Dioxide 21 L (22-30) mmol/L Anion Gap 10 (4-12) mmol/L BUN 13 (7-17) mg/dL Creatinine 0.72 (0.7-1.0) mg/dL Estim Creat Clear Calc 87 ml/min Estimated GFR > 60 (59 - ) Glucose 100 (65-110) mg/dL Calcium 9.0 (8.4-10.2) mg/dL Total Bilirubin 0.7 (0.2-1.3) mg/dL AST 19 (14-36) U/L ALT 13 (6-35) U/L Alkaline Phosphatase 66 (38-126) U/L Total Protein 8.0 (6.3-8.2) g/dL Albumin 4.4 (3.5-5.1) g/dL Beta HCG, Quant 38.68 mIU/ML Blood Type O Positive Antibody Screen Negative Screen TNP Baby's Blood Type TNP Baby's MT TNP Doses of RhIg Required 0 <Cassi Snyder MD - Last Filed: 11/18/24 00:57> Discharge Plan Discharge Clinical Impression: Miscarriage, threatened, early <Tino Herring PA-C - Last Filed: 11/18/24 00:46> Patient Disposition: Home, Self-Care <Tino Herring PA-C - Last Filed: 11/18/24 00:46> Condition: Stable <Tino Herring PA-C - Last Filed: 11/18/24 00:46> Instructions: Antibiotic Form, Threatened Miscarriage (ED) <Tino Herring PA-C - Last Filed: 11/18/24 00:46> Additional Instructions: Your seen in the ER today for vaginal bleeding during . Your symptoms today could be representing a miscarriage. Please follow-up closely with your OB for definitive diagnosis and management. If you have any new or worsening symptoms please return to the ER for further evaluation. <Tino Herring PA-C - Last Filed: 11/18/24 00:46> Patient Language: Eritrean <Tino Herring PA-C - Last Filed: 11/18/24 00:46> Prescriptions: No Action hydrocodone-acetaminophen 5-325 mg tablet 1 - 2 tablet PO Q4H PRN (Reason: pain) Qty: 15 0RF <Tino Herring PA-C - Last Filed: 11/18/24 00:46> Follow-up/Referrals: Suly,JOÃO Madrid [Primary Care Provider] - <Tino Herring PA-C - Last Filed: 11/18/24 00:46> Time of Disposition: 00:44 <Tino Herring PA-C - Last Filed: 11/18/24 00:46> 00:44 <Cassi Snyder MD - Last Filed: 11/18/24 00:57>
[2024-11-17 21:56] LABS: Basophils Absolute Auto 0.1 K/mm3 (0.0-0.1); Basophils Percent Auto 0.6 % (0.2-1.2); Eosinophils Percent Auto 0.5 % (0-4.4); Hematocrit 35.8 % (37.0-47.0); Hemoglobin 12.4 g/dL (12.0-15.0); Immature Granulocyte Absolute 0.02 K/mm3 (0.00-0.031); Immature Granulocyte Percent A 0.2 % (0-0.5); Lymphocytes Absolute Auto 2.38 K/mm3 (0.9-3.2); Lymphocytes Percent Auto 29.6 % (18.3-44.2); Mean Corpuscular HGB Conc 34.6 g/dl (32-36); Mean Corpuscular Hemoglobin 32.4 pg (26-34); Mean Corpuscular Volume 93.5 fl (80-100); Mean Platelet Volume 9.3 fl (7.4-10.4); Monocytes Absolute Auto 0.6 K/mm3 (0.1-0.6); Monocytes Percent Auto 7.3 % (2.6-8.5); Neutrophils Percent Auto 61.8 % (45.5-73.1); Platelet Count Result 221 k/mm3 (150-375); Red Blood Count 3.83 M/mm3 (4.2-5.4); Red Cell Distribution Width 12.5 % (11.5-14.5)
--- OUTSIDE RECORDS SUMMARY | 2024-11-17 22:00 | XMS_ITS | Continuity of Care Document ---
Author Organization [facility] Address [address] [place] [address] Phone Care Team Providers Care Statistical Assistant Name Role Phone Nurse, Registered Unavailable Unavailable Procedures Procedure Date ADMIN SARSCOV2 VACC 1 DOSE SARSCOV2 VAC 30MCG TRSSUC IM Advance Directives Directive Yes / No Effective Date File Name No Information Encounters Encounter Description Practice Location Reason(s) For Visit Diagnoses Date Provider Providers Copied on Encounter [facility] , [address], [place], [place], [id number], [place] tel:[phone] COVID Mobile immunization (chief complaint) No Information Nurse Registervaishali flannery [address], [place], [place], [address] , [place]. tel:[phone] Family History Family Member Type Diagnosis Age At Onset No Information Immunizations Vaccine Date Status Comments 12+ Pfizer administered Note: Pt tolera trery well ; Source: New Immunization Record Payers Payer name Insurance type Covered constitution party ID Authoriza tion(s) No Information Social History Type Description Quantity Date Captured Comments Alcohol Use Details Unknown Caffeine Use Details Unknown Tobacco Use Status No Information Smoking Status No Information Sex Female Chief Complaint And Reason For Visit From encounter dated '07/21/2023 17:52'. immunization (chief complaint). 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
--- OUTSIDE RECORDS SUMMARY | 2024-11-17 22:00 | XMS_ITS | Continuity of Care Document ---
Author Organization [facility] Address [address] [place] [address] Phone Care Team Providers Care Hand Box Folder Name Role Phone Nurse, Registered Unavailable Unavailable Procedures Procedure Date IMMUN ADMIN SARSCOV2 BVL 30MCG/.3ML YARELI TER SARSCOV2 VAC BVL 30MCG/0,3ML Advance Directives Directive Yes / No Effective Date File Name No Information Encounters Encounter Description Practice Location Reason(s) For Visit Diagnoses Date Provider Providers Copied on Encounter [facility] , [address], [place], [place], [id number], tel:[phone] COVID Mobile COVID (chief complaint) No Information Nurse Registered . [address], [place], [place], [id number], . tel:[phone] Referring Provider: Neelam Diamond, [address], [place], [address]. tel:[phone] Family History Family Member Type Diagnosis Age At Onset No Information Immunizations Vaccine Date Status Comments COVID-19 Pfizer 12+ Bivalent Booster administered Note: Pt tolerated w ell administered by Maria Esther Styles MA ; Source: New Immunization Record Payers Payer name Insurance type Covered democrat ID Authoriza tion(s) No Information Social History Type Description Quantity Date Captured Comments Sex Female Smoking Status No Information Chief Complaint And Reason For Visit From encounter dated '06/23/2022 00:00'. COVID (chief complaint). Description: Booster COVID-19 Pfizer 12+ Bivalent Booster [phone] [id number] Administered New 06/28/2022 06/23/2022 12:25 PM Xochilt Styles MA 0.3 [id number] 03/10/2023 [employer] Intramuscular Right Deltoid Pt tolerated well administered by EMILY Tolbert MA, Sharren Baynes MA, Sharren (06/28/2022) Reason For Referral Reason For Referral No Information History Of Present Illness Encounter Date Complaint History Of Prese nt Illness COVID Booster COVID-19 Pfizer 12+ Bivalent Booster 300 [id number] Administered New 06/28/2022 06/23/2022 12:25 PM Xochilt Styles MA 0.3 [id number] 03/10/2023 [employer] Intramuscular Right Deltoid Pt tolerated well administered by EMILY Tolbert MA, Sharren Baynes MA, Sharren (06/28/2022) Functional Status Date Functional Assessmen t No Information Instructions Date Instruction Additional Infor mation No Information Assessments Type Assessment Date No Information Patient Care Teams Name Effective Dates (start - stop) Status Members No Information
[2024-11-17 22:03] LABS: Alanine Aminotransferase 13 U/L (6-35); Albumin Level 4.4 g/dL (3.5-5.1); Alkaline Phosphatase 66 U/L (38-126); Anion Gap 10 mmol/L (4-12); Aspartate Amino Transferase 19 U/L (14-36); Bilirubin,Total 0.7 mg/dL (0.2-1.3); Blood Urea Nitrogen 13 mg/dL (7-17); Carbon Dioxide 21 mmol/L (22-30); Chloride 106 mmol/L (98-107); Estimated CRCL calculation 87 ml/min; Estimated Glomerular Filt Rate > 60; Glucose 100 mg/dL (65-110); Potassium 3.9 mmol/L (3.4-5.0); Sodium 137 mmol/L (137-145)
[2024-11-17 22:19] LABS: Beta HCG Quantitative 38.68 mIU/ML
--- NOTE | 2024-11-17 23:59 | PC.NURSE ---
pt states she is unable to void for a bedside test
[2024-11-18 01:09] VITALS: BP 132/89; PULSE 74; RESP 15; O2SAT 99
[2024-11-18 01:10] VITALS: BP 132/89; PULSE 74; RESP 15; O2SAT 99
== END 2024-11-18 01:12 | disposition home or self-care (01) ==
PROVIDERS: Emergency Medicine; Emergency Provider Physician Assistant; PCP Registered Nurse
DX: O20.0 Threatened abortion (principal); O09.521 Supervision of elderly multigravida, first trimester; Z3A.01 Less than 8 weeks gestation of pregnancy
CPT/HCPCS: 36415; 76801; 76817; 80053; 84702; 85025; 85461; 86850; 86900; 86901; 99284